=== PATIENT | male | born 1995 | race Caucasian/White ===

== ENCOUNTER 2018-07-17 20:18 | Inpatient (IN) | payer OTHER ==
[~2018-07-17] VITALS: Ht 175.3 cm; Wt 74.1 kg
--- NOTE | 2018-07-17 21:11 | CONS ---
Assessment/Plan Assessment/Plan Assessment/Plan (Daily) 22-year-old male with right ankle infection and active purulent drainage status post ORIF with ongoing hardware related pain. -N.p.o. after midnight -Antibiotics per primary service -Plan for OR tomorrow with hardware removal and irrigation and debridement -Nonweightbearing to the right lower extremity ----Lianne Childers MD Consultation Date/Type/Reason Admit Date/Time Date of Consultation: Jul 17, 2018 Type of Consult Right ankle infection Date/Time of Note DATE: 07/17/18 TIME: 21:11 Hx of Present Illness She is a 22-year-old male who presents with several weeks of right ankle drainage and surrounding erythema. He is several years status post right ankle ORIF in [facility]. He reports worsening pain over his right ankle and currently no fevers chills or nausea or vomiting. Past Medical History Medical History: no pertinent history Allergies: Coded Allergies: No Known Drug Allergies (Verified Allergy, Unknown, 07/17/18) Past Surgical History Right ankle ORIF several years ago while incarcerated Social History Alcohol Use: none Smoking Status: Never smoker Exam/Review of Systems Exam Vitals Vital Signs Date Temp Pulse Resp B/P (MAP) Pulse Ox O2 O2 Flow FiO2 Time Delivery Rate 07/17/18 98.4 80 18 137/73 99 20:25 (94) Constitutional: alert, oriented, well developed Musculoskeletal: other (Right ankle-extensive purulent drainage over the lateral aspect of the ankle with surrounding erythema and active drainage. He has intact ankle dorsiflexion and plantar flexion and limited eversion and inversion of pain. Strength was not assessed due to pain at this time. He has intact sensation to light touch the medial, lateral, dorsal, plantar, first dorsal traces distribution although it is slightly diminished over the lateral portion of his ankle and lateral dorsum of his foot. He has dorsalis pedis and posterior tibialis 2+ pulses.) LAKESHA CHILDERS MD Jul 17, 2018 21:11
[2018-07-17] MEDS ORDERED: VANCOMYCIN 1 GM (PMX) 250 ML IVPB ONE (21:30)
[2018-07-18] VITALS (16 sets, daily range): BP systolic 105–130; BP diastolic 50–74; PULSE 62–77; RESP 10–18; Ht 175.3 cm; Wt 74.1 kg
[2018-07-18] MEDS ORDERED: ACETAMINOPHEN 325 MG TAB PO PRN
[2018-07-18] MEDS ORDERED: NACL 0.9% 3 ML SYG IV SCH
[2018-07-18] MEDS ORDERED: morphine 2 MG INJ IV PRN
[2018-07-18] MEDS ORDERED: HYDROCODONE/APAP (5/325) TAB PO PRN
[2018-07-18] MEDS ORDERED: ONDANSETRON 4 MG TAB PO PRN
[2018-07-18] MEDS ORDERED: CEFAZOLIN 1 GM/50 ML (PMX) 50 ML IVPB SCH
--- NOTE | 2018-07-18 00:07 | HP ---
Date/Time of Note Date/Time of Note DATE: 07/17/18 TIME: 23:48 Assessment/Plan VTE Prophylaxis SCD applied (from Nsg): Yes Pharmacological prophylaxis: NA/contraindicated Pharm contraindication: low risk/ambulating Assessment/Plan Hospital Course This is a 22-year-old male being admitted to the [facility] floor for: #1 right ankle infection: Possibly secondary to infected hardware/osteo. xrays pending. Patient did receive vancomycin in the ED. We will give the patient cefazolin. Patient's chest x-ray is clear that EKG is nonischemic. Patient is a active male. He denies any chest pain or shortness of breath when walking up and down stairs. METS greater than 4. Patient is medically optimized to proceed with this intermediate surgery. The benefits likely outweigh the risks. #2 DVT GI prophylaxis: SCDs to the left lower extremity, no GI prophylaxis indicated further treatment strategy will be implemented as per the clinical course. Result Diagram: 07/17/18 2213 07/17/18 2213 Results 24hrs Laboratory Tests Test 07/17/18 22:13 White Blood Count 9.8 Red Blood Count 4.80 Hemoglobin 14.7 Hematocrit 44.7 Mean Corpuscular Volume 93.1 Mean Corpuscular Hemoglobin 30.6 Mean Corpuscular Hemoglobin Concent 32.9 Red Cell Distribution Width 12.1 Platelet Count 222 Mean Platelet Volume 12.2 H Immature Granulocytes % 0.300 Neutrophils % 55.8 Lymphocytes % 31.0 Monocytes % 8.1 Eosinophils % 3.9 Basophils % 0.9 Nucleated Red Blood Cells % 0.0 Immature Granulocytes # 0.030 Neutrophils # 5.5 Lymphocytes # 3.1 H Monocytes # 0.8 Eosinophils # 0.4 Basophils # 0.1 Nucleated Red Blood Cells # 0.0 Prothrombin Time 12.0 Prothrombin Time Ratio 0.9 INR International Normalized Ratio 0.88 Activated Partial Thromboplast Time 27.6 Thrombin Time 16.3 Urine Color YELLOW Urine Clarity CLEAR Urine pH 6.0 Urine Specific [place] 1.027 Urine Ketones NEGATIVE Urine Nitrite NEGATIVE Urine Bilirubin NEGATIVE Urine Urobilinogen 1+ H Urine Leukocyte Esterase NEGATIVE Urine Hemoglobin NEGATIVE Urine Glucose NEGATIVE Urine Total Protein NEGATIVE Sodium Level 139 Potassium Level 4.1 Chloride Level 106 Carbon Dioxide Level 24 Anion Gap 9 Blood Urea Nitrogen 23 H Creatinine 1.01 Est Glomerular Filtrat Rate mL/min > 60 Glucose Level 84 Calcium Level 9.6 Total Bilirubin 0.3 Direct Bilirubin 0.00 Indirect Bilirubin 0.3 Aspartate Amino Transf (AST/SGOT) 48 H Alanine Aminotransferase (ALT/SGPT) 48 Alkaline Phosphatase 69 C-Reactive Protein < 0.5 Total Protein 8.5 H Albumin 4.6 Globulin 3.90 H Albumin/Globulin Ratio 1.17 HPI/ROS Admit Date/Time Admit Date/Time Hx of Present Illness cc: right ankle pain, wound This is a 22M with a history of right ankle fx s/p ankle surgery who presents from his orthopedics office for preop eval for sx. Patient has been dealing with pain x 1 month to the right ankle. He has noticed discharge and blood and foul order for the last 1 month. He broke his ankle approximately 3 years ago in a soccer accident and had surgery then. Patient was going to have surgery via orthopedic surgery . Patient is a Patient is a independently functioning male. He is able to walk up and down steps without any chest pain or shortness of breath. He has not have any previous issues with anesthesia. Allergies: NKDA Medications: None ROS Const: Negative for fever, chills, weight gain or weight loss, fatigue, or diaphoresis Eyes : No pain discharge or redness or change in visual acuity ENT: No pain, sore throat, congestion, congestion, dysphagia or discharge Respiratory: No shortness of breath, cough, sputum, wheezing, or pleuritic pain Cardiovascular: No chest pain, palpitation, PND, or edema GI : no change in appetite, abdominal pain, nausea, vomiting, diarrhea, const ipation, or change in the color his stool Genitourinary: No dysuria, hematuria, flank pain , discharge or CVA tenderness Musculoskeletal: As per HPI Skin: As per HPI Neuro: No headache, dizziness, syncope, seizure, focal weakness Endocrine: No polyuria, polydipsia, temperature intolerance Psych: No hallucination, depression, anxiety or suicidal ideation PMH/Family/Social Past Medical History Right ankle fracture status post surgery 3 years ago Coded Allergies: No Known Drug Allergies (Verified Allergy, Unknown, 07/17/18) Past Surgical History Right ankle surgery 3 years ago Family History Significant Family History: no pertinent family hx Social History Alcohol Use: occasionally Smoking Status: Never smoker Drug Use: none Exam/Review of Systems Vital Signs Vitals Vital Signs Date Temp Pulse Resp B/P (MAP) Pulse Ox O2 O2 Flow FiO2 Time Delivery Rate 07/17/18 77 16 116/72 99 Room Air 22:41 (87) 07/17/18 98.4 20:25 Exam Exam General: Patient is well-developed well-nourished The patient is alert oriented -3 lying comfortably in bed. HEENT: Atraumatic, normocephalic. The pupils are equal, round and reactive. Extraocular motor are intact Neck: Supple with full range of motion. No rigidity or meningismus Chest: Nontender Lungs: Clear to auscultation bilaterally no crackles rales or wheezing Heart: Normal S1-S2, Regular rhythm and rate. No murmur, S3, or S4 Abdomen: Soft , nontender, nondistended , bowel sounds are present. No guarding no rebound tenderness , No masses or organomegaly. No costovertebral temporal angle mass Extremities: Normal to inspection, no edema no cyanosis Neurologic: Normal mental status, speech normal, cranial nerves II through XII are intact, motor and sensory are intact, no focal weakness Additional Comments PROCEDURE: XR Chest. CLINICAL INDICATION: Preoperative TECHNIQUE: Single frontal view of the chest was obtained COMPARISON: None FINDINGS: The heart and mediastinum are within normal limits. The lungs are clear. There is no pleural effusion or pneumothorax. RPTAT: AA IMPRESSION: No acute disease. .Huy Snider MD, MD Date Time Electronically viewed and signed by .Huy Snider MD, on 07/17/2018 22:53 .S/ CC: LAKESHA CHILDERS MD [phone] EKG: Normal sinus rhythm at approximately beats per minute, no ST or T wave abnormalities concerning for acute ischemia DANDY HUA Jul 18, 2018 00:06
--- NOTE | 2018-07-18 00:13 | ERD ---
ER Documentation Chief Complaint Chief Complaint was told to be admitted for right ankle surgery tomorrow HPI This is a very pleasant 22-year-old male who was told to come in to be admitted for right ankle surgery tomorrow. Apparently has a infection in his right ankle. Dr. house sent the patient in. ROS All systems reviewed and are negative except as per history of present illness. Allergies Allergies: Coded Allergies: No Known Drug Allergies (Verified Allergy, Unknown, 07/17/18) PMhx/Soc Medical and Surgical Hx: pt denies Medical Hx History of Surgery: Yes (LEFT SHOULDER, RIGHT ANKLE) Hx Alcohol Use: Yes Hx Substance Use: No Hx Tobacco Use: No Smoking Status: Never smoker Physical Exam Vitals Vital Signs Date Temp Pulse Resp B/P (MAP) Pulse Ox O2 O2 Flow FiO2 Time Delivery Rate 07/17/18 98.4 90 16 120/66 99 Room Air 23:57 (84) 07/17/18 77 16 116/72 99 Room Air 22:41 (87) 07/17/18 98.4 80 18 137/73 99 20:25 (94) Physical Exam Const: No acute distress Head: Atraumatic Eyes: Normal Conjunctiva ENT: Normal External Ears, Nose and Mouth. Neck: Full range of motion. No meningismus. Resp: Clear to auscultation bilaterally Cardio: Regular rate and rhythm, no murmurs Abd: Soft, non tender, non distended. Normal bowel sounds Skin: No petechiae or rashes Back: No midline or flank tenderness Ext: No cyanosis, or edema Neur: Awake and alert Psych: Normal Mood and Affect Result Diagram: 07/17/183 07/17/18 2213 Results 24 hrs Laboratory Tests Test 07/17/18 22:13 White Blood Count 9.8 10^3/ul Red Blood Count 4.80 10^6/ul Hemoglobin 14.7 g/dl Hematocrit 44.7 % Mean Corpuscular Volume 93.1 fl Mean Corpuscular Hemoglobin 30.6 pg Mean Corpuscular Hemoglobin Concent 32.9 g/dl Red Cell Distribution Width 12.1 % Platelet Count 222 10^3/UL Mean Platelet Volume 12.2 fl Immature Granulocytes % 0.300 % Neutrophils % 55.8 % Lymphocytes % 31.0 % Monocytes % 8.1 % Eosinophils % 3.9 % Basophils % 0.9 % Nucleated Red Blood Cells % 0.0 /100WBC Immature Granulocytes # 0.030 10^3/ul Neutrophils # 5.5 10^3/ul Lymphocytes # 3.1 10^3/ul Monocytes # 0.8 10^3/ul Eosinophils # 0.4 10^3/ul Basophils # 0.1 10^3/ul Nucleated Red Blood Cells # 0.0 10^3/ul Erythrocyte Sedimentation Rate 2 mm/Hr Prothrombin Time 12.0 Sec Prothrombin Time Ratio 0.9 INR International Normalized Ratio 0.88 Activated Partial Thromboplast Time 27.6 Sec Thrombin Time 16.3 SEC Urine Color YELLOW Urine Clarity CLEAR Urine pH 6.0 Urine Specific [place] 1.027 Urine Ketones NEGATIVE mg/dL Urine Nitrite NEGATIVE mg/dL Urine Bilirubin NEGATIVE mg/dL Urine Urobilinogen 1+ mg/dL Urine Leukocyte Esterase NEGATIVE [place]/ul Urine Hemoglobin NEGATIVE mg/dL Urine Glucose NEGATIVE mg/dL Urine Total Protein NEGATIVE mg/dl Sodium Level 139 mmol/L Potassium Level 4.1 mmol/L Chloride Level 106 mmol/L Carbon Dioxide Level 24 mmol/L Anion Gap 9 Blood Urea Nitrogen 23 mg/dl Creatinine 1.01 mg/dl Est Glomerular Filtrat Rate mL/min > 60 mL/min Glucose Level 84 mg/dl Calcium Level 9.6 mg/dl Total Bilirubin 0.3 mg/dl Direct Bilirubin 0.00 mg/dl Indirect Bilirubin 0.3 mg/dl Aspartate Amino Transf (AST/SGOT) 48 IU/L Alanine Aminotransferase (ALT/SGPT) 48 IU/L Alkaline Phosphatase 69 IU/L C-Reactive Protein < 0.5 mg/dl Total Protein 8.5 g/dl Albumin 4.6 g/dl Globulin 3.90 g/dl Albumin/Globulin Ratio 1.17 Current Medications Medications Dose Sig/Rashmi Start Time Status Last (Trade) Ordered Route PRN Stop Time Admin Dose Reason Admin Vancomycin 250 ml @ PRE-OP ONCE 07/17/18 DC 07/17/18 HCl 250 mls/hr IVPB 21:30 22:21 07/17/18 22:29 Sodium 1,000 ml @ [id number] IV 07/17/18 UNV Chloride 80 mls/hr 23:51 IV Flush 3 ml PER 07/18/18 UNV (NS 3 ml) PROTOCOL IV 00:00 Ondansetron 4 mg Q6H PRN 4/22/19 UNV HCl (Zofran PO 00:00 Tab) NAUSEA/VOMITI NG 650 mg Q6H PRN 07/18/18 UNV Acetaminophen PO .PAIN 1-3 00:00 (Tylenol OR TEMP Tab) 1 tab Q6H PRN 07/18/18 UNV Acetaminophen PO .MOD PAIN 00:00 / 4-6 Hydrocodone Bitart ([place] (5/325)) Morphine 2 mg Q4H PRN 07/18/18 UNV Sulfate IV .SEVERE 00:00 (morphine) PAIN 7-10 Docusate 100 mg Q12H PRN 07/18/18 UNV Sodium PO 00:00 (Colace) .CONSTIPATION Bisacodyl 5 mg DAILY PRN 07/18/18 UNV (Dulcolax) PO 00:00 .CONSTIPATION Cefazolin 50 ml @ ONCE IVPB 07/18/18 UNV Sodium 100 mls/hr 00:00 07/18/18 00:29 Procedures/MDM Medical decision m[age]-year-old male here to be cleared for possible surgery tomorrow. He has right ankle chronic issue that will likely need to be taken care of in the operating room. Admitted to hospitalist who is on-call. Departure Diagnosis: Primary Impression: Ankle pain Chronicity: unspecified Laterality: unspecified laterality Qualified Codes: M25.579 - Pain in unspecified ankle and joints of unspecified foot Condition: Serious JOSE CARLOS MIRANDA Jul 18, 2018 00:13
[2018-07-18] MEDS: SOD CHLORIDE 0.9% 1,000 ML IV SCH ×3 (01:02→23:21)
[2018-07-18] MEDS: CEFAZOLIN 1 GM/50 ML (PMX) 50 ML IVPB SCH ×2 (06:24→13:19)
[2018-07-18] MEDS ORDERED: NEOMYC/POLYMYX/BACIT 30 GM OINT ONE (06:51)
[2018-07-18] MEDS ORDERED: ROPIVACAINE 0.5 % 30 ML VIAL ONE ×2 (06:51→07:36)
[2018-07-18] MEDS ORDERED: POLYMYXIN B 500000 UNIT INJ ONE (06:51)
[2018-07-18] MEDS ORDERED: PROPOFOL 20 ML ONE ×2 (07:30→08:40)
[2018-07-18] MEDS ORDERED: ROCURONIUM 50 MG INJ ONE (07:30)
[2018-07-18] MEDS ORDERED: SUCCINYLCHOLINE CHLORIDE 100 MG/5 ML SYG IV ONE (07:30)
[2018-07-18] MEDS ORDERED: LIDOCAINE 2% (SDV) 5 ML INJ ONE (07:30)
[2018-07-18] MEDS ORDERED: FENTAnyl 50 MCG/ML VIAL ONE (07:31)
[2018-07-18] MEDS ORDERED: MIDAZOLAM 1 MG/ML 2 ML INJ ONE (07:31)
--- NOTE | 2018-07-18 08:34 | PN ---
Date/Time of Note Date/Time of Note DATE: 07/18/18 TIME: 08:30 Assessment/Plan Assessment/Plan Assessment/Plan Patient admitted from ER for 1-2 weeks of purulent drainage from the right ankle lateral wound, 2-3 years s/p R ankle ORIF at outside facility, now with concern for hardware infection, possible osteomyelitis and abscess with worry for spread - NPO - IVF - NWB to the RLE - to OR for urgent I&D and HWR --- Lianen Childers MD Subjective 24 Hr Interval Summary Right ankle purulent drainage. Denies fevers or chills Exam/Review of Systems Vital Signs Vitals Vital Signs Date Temp Pulse Resp B/P (MAP) Pulse Ox O2 O2 Flow FiO2 Time Delivery Rate 07/18/18 98.0 62 17 113/59 98 Room Air 06:48 (77) Intake and Output 07/17/18 07/17/18 07/18/18 1414:59 22:59 06:59 IntakeIntake Total 420 ml BalanceBalance 420 ml Exam Constitutional: alert, oriented, well developed Musculoskeletal: other (RLE/ Purulent drainage over the lateral ankle wound wit surrounding erythema, ta/gsc/ehl intact with 5/5 strength, silt to the m/l/d/ p/fdw, dp/pt 2+) Results Result Diagram: 07/18/18 0521 07/18/18 0521 LAKESHA CHILDERS MD Jul 18, 2018 08:34
[2018-07-18] MEDS ORDERED: FAMOTIDINE 20 MG INJ ONE (08:47)
[2018-07-18] MEDS ORDERED: DEXAMETHASONE 4 MG/ML 5 ML INJ ONE (08:47)
[2018-07-18] MEDS ORDERED: ONDANSETRON 4 MG INJ ONE (08:47)
[2018-07-18] MEDS ORDERED: VANCOMYCIN 1 GM INJ ONE (09:07)
[2018-07-18] MEDS ORDERED: VANCOMYCIN 1 GM (PMX) 250 ML ONE (09:07)
--- NOTE | 2018-07-18 09:34 | PREAC ---
Date/Time of Note Date/Time of Note DATE: 07/18/18 TIME: 09:33 Anesthesia Eval and Record Evaluation Time Pre-Procedure Interview DATE: 07/18/18 TIME: 09:33 Age 22 Sex male NPO: 8 hrs Preoperative diagnosis infected right ankle hardware Planned procedure right ankle hardware removal, irrigation and debridement of bone, tendon, muscle, skin, secondary closure of surgical wound or dehiscense, extensive or c omplicate Past Medical History Past Medical History: None Surgery & Anesthesia Issues No known issue Meds Anticoagulation: No Beta Porsche within 24 hr: No Reason Beta Porsche not given: Pt. not on B-Porsche Current Medications Sodium Chloride 1,000 ml @ 80 mls/hr [id number] IV Last administered on 07/18/18at 01:02; Admin Dose 80 MLS/HR; Start 07/17/18 at 23:51 IV Flush (NS 3 ml) 3 ml PER PROTOCOL IV ; Start 07/18/18 at 00:00 Ondansetron HCl (Zofran Tab) 4 mg Q6H PRN PO NAUSEA/VOMITING; Start 07/18/18 at 00:00 Acetaminophen (Tylenol Tab) 650 mg Q6H PRN PO .PAIN 1-3 OR TEMP; Start 07/18/18 at 00:00 Acetaminophen/ Hydrocodone Bitart ([place] (5/325)) 1 tab Q6H PRN PO .MOD PAIN 4- 6; Start 07/18/18 at 00:00 Morphine Sulfate (morphine) 2 mg Q4H PRN IV .SEVERE PAIN 7-10; Start 07/18/18 at 00:00 Docusate Sodium (Colace) 100 mg Q12H PRN PO .CONSTIPATION; Start 07/18/18 at 00:00 Bisacodyl (Dulcolax) 5 mg DAILY PRN PO .CONSTIPATION; Start 07/18/18 at 00:00 Cefazolin Sodium 50 ml @ 100 mls/hr Q8 IVPB Last administered on 07/18/18at 06:24; Admin Dose 100 MLS/HR; Start 07/18/18 at 06:00 Meds reviewed: Yes Allergies Coded Allergies: No Known Drug Allergies (Verified Allergy, Unknown, 07/17/18) Allergies Reviewed: Yes Labs/Studies Labs Reviewed: Reviewed by anesthesiologist Result Diagram: 07/18/1852007/18/18520 Laboratory Tests 07/18/18 05:21 test: N/A Pre-procedure Exam Last vitals Vital Signs Date Temp Pulse Resp B/P (MAP) Pulse Ox O2 O2 Flow FiO2 Time Delivery Rate 07/18/18 98.0 62 17 113/59 98 Room Air 06:48 (77) Airway: Adequate mouth opening, Adequate thyromental dist Mallampati: Mallampati II Teeth: Normal Lung: Normal Heart: Normal ASA Physical Status ASA physical status: 1 Emergency: None Planned Anesthetic General/MAC: ETT Nerve block: Sciatic (right) Planned Pain Management Single shot nerve block, Parenteral pain med Pre-operative Attestations Prior to commencing anesthesia and surgery, the patient was re-evaluated, there was verification of: *The patient's identity *The results of appropriate recent lab work and preoperative vital signs *The above evaluation not changing prior to induction *Anesthetic plan, risk benefits, alternative and complications discussed with patient/family; questions answered; patient/family understands, accepts and wishes to proceed. ELEANOR PRASAD MD Jul 18, 2018 09:34
[2018-07-18] MEDS ORDERED: HYDROmorphONE 2 MG/ML SYG ONE (10:18)
[2018-07-18] MEDS ORDERED: NEOSTIGMINE 3 MG/3 ML SYRINGE ONE (10:57)
[2018-07-18] MEDS ORDERED: GLYCOPYRROLATE 0.4 MG INJ ONE (10:57)
[2018-07-18] MEDS ORDERED: BACITRACIN 50000 UNITS INJ IRR ONE (11:03)
[2018-07-18] MEDS ORDERED: LABETALOL HCL 20MG INJ ONE (11:05)
--- NOTE | 2018-07-18 11:37 | OPR ---
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 Patient has ongoing pain over both his medial and lateral ankle hardware and is indicated for surgical removal as well as irrigation and debridement. Risk Note: Patient was explained the risks and benefits of surgery and the patient's stebbins language including not limited to infection, bleeding, injury to blood vessels, nerves, ligaments or tendons. Risks of anesthesia, deep vein thrombosis and need for reduce future surgery. Patient acknowledged these risk by signing the surgical consent form. Procedure Description Patient was met in the preoperative holding area and the correct operative extremity was marked and confirmed with the patient and consent. Patient was brought to the operative theater placed supine on the table given preoperative antibiotics and preoperative regional block anesthesia. Patient was prepped and draped in the normal sterile fashion. A timeout was taken and all parties in the room agreed as a correct patient extremity and procedure. Multiple cultures were taken from the lateral ankle purulent drainage site. There were sent for pathology. This was made over the previous incision site hardware was identified and removed. The bone, muscle and surrounding soft tissue were debrided thoroughly with a curette and then irrigated with 9 L of normal saline mixed with polymyxin bacitracin. The wound was irrigated extensively and curetted extensively along the bone and soft tissue. The wound was then packed with vancomycin powder and then closed in layers with a 2-0 Vicryl followed by a 3-0 Monocryl and then a 3-0 nylon in a vertical mattress fashion. Fluoroscopy confirmed that all lateral side hardware had been removed. Attention was then turned to the medial ankle where there was pain over the anterior medial malleolus screw. The anterior screw was identified however the threads were already lost at the site of the screw head and thus having to use a broken screw removal set to remove the hardware at this site. Once the screw was removed the site was then packed with DBM to allow for future healing. The wound was irrigated thoroughly and closed in layers with a 2-0 Vicryl followed by 3-0 nylon in a vertical mattress fashion. X-ray confirmed that the posterior screw was left in place due to the lack of prominence and risk of removing the screw which could cause further bony defect. The wounds were dressed with Xeroform despite antibiotic ointment and placed in a well-padded short leg splint with diabetes and 5 Webrils in a neutral position. At the end of the case all sponge and needle counts were correct and patient brought to the PACU in stable condition. In the PACU the toes were warm and well-perfused. Patient will remain nonweightbearing for the next several weeks and will be started on p.o. or IV antibiotics per the primary team. NEWTON CHILDERS MD Jul 18, 2018 11:37
--- NOTE | 2018-07-18 11:38 | PAC ---
Date/Time of Note Date/Time of Note DATE: 07/18/18 TIME: 11:38 Post-Anesthesia Notes Post-Anesthesia Note Last documented vital signs Vital Signs Date Temp Pulse Resp B/P (MAP) Pulse Ox O2 O2 Flow FiO2 Time Delivery Rate 07/18/18 98.0 62 17 113/59 98 Room Air 06:48 (77) Activity: WNL Respiratory function: WNL Cardiovascular function: WNL Mental status: Baseline Pain reasonably controlled: Yes Hydration appropriate: Yes Nausea/Vomiting absent: Yes Comments BP: 120/65 HR: 77 RR:15 T: 99.8 SaO2: 97% ELEANOR PARSAD MD Jul 18, 2018 11:38
[2018-07-18] MEDS ORDERED: DIPHENHYDRAMINE 25 MG CAP PO PRN (12:00)
--- NOTE | 2018-07-18 13:06 | PN ---
Date/Time of Note Date/Time of Note DATE: 07/18/18 TIME: 13:00 Assessment/Plan VTE Prophylaxis Risk score (from [facility] [place] risk: 2 SCD applied (from [facility] [place] Yes Pharmacological prophylaxis: LMWH Lines/Catheters IV [facility]ter Type (from [facility]): Peripheral IV Assessment/Plan Assessment/Plan 1. Right ankle infection, s/p Right ankle hardware removal, and I&D on 07/18/2018, on antibiotics, follow up with PT and ortho 2. DVT prophylaxis: lovenox Result Diagram: 07/18/18 0521 07/18/18 0521 Results 24hrs Laboratory Tests Test 07/17/18 22:13 07/18/18 05:21 White Blood Count 9.8 9.0 Red Blood Count 4.80 4.52 L Hemoglobin 14.7 14.0 Hematocrit 44.7 42.4 Mean Corpuscular Volume 93.1 93.8 Mean Corpuscular Hemoglobin 30.6 31.0 Mean Corpuscular Hemoglobin Concent 32.9 33.0 Red Cell Distribution Width 12.1 12.1 Platelet Count 222 185 Mean Platelet Volume 12.2 H 12.3 H Immature Granulocytes % 0.300 0.600 H Neutrophils % 55.8 60.0 Lymphocytes % 31.0 27.1 Monocytes % 8.1 7.8 Eosinophils % 3.9 3.9 Basophils % 0.9 0.6 Nucleated Red Blood Cells % 0.0 0.0 Immature Granulocytes # 0.030 0.050 H Neutrophils # 5.5 5.4 Lymphocytes # 3.1 H 2.4 Monocytes # 0.8 0.7 Eosinophils # 0.4 0.4 Basophils # 0.1 0.1 Nucleated Red Blood Cells # 0.0 0.0 Erythrocyte Sedimentation Rate 2 Prothrombin Time 12.0 Prothrombin Time Ratio 0.9 INR International Normalized Ratio 0.88 Activated Partial Thromboplast Time 27.6 Thrombin Time 16.3 Urine Color YELLOW Urine Clarity CLEAR Urine pH 6.0 Urine Specific [place] 1.027 Urine Ketones NEGATIVE Urine Nitrite NEGATIVE Urine Bilirubin NEGATIVE Urine Urobilinogen 1+ H Urine Leukocyte Esterase NEGATIVE Urine Hemoglobin NEGATIVE Urine Glucose NEGATIVE Urine Total Protein NEGATIVE Sodium Level 139 140 Potassium Level 4.1 4.2 Chloride Level 106 105 Carbon Dioxide Level 24 25 Anion Gap 9 10 Blood Urea Nitrogen 23 H 19 Creatinine 1.01 0.96 Est Glomerular Filtrat Rate mL/min > 60 > 60 Glucose Level 84 94 Calcium Level 9.6 8.8 Total Bilirubin 0.3 0.6 Direct Bilirubin 0.00 0.00 Indirect Bilirubin 0.3 0.6 Aspartate Amino Transf (AST/SGOT) 48 H 38 Alanine Aminotransferase (ALT/SGPT) 48 48 Alkaline Phosphatase 69 64 C-Reactive Protein < 0.5 Total Protein 8.5 H 7.0 # Albumin 4.6 4.1 Globulin 3.90 H 2.90 Albumin/Globulin Ratio 1.17 1.41 Hemoglobin A1c 5.1 Magnesium Level 2.2 Triglycerides Level 75 Cholesterol Level 154 LDL Cholesterol, Calculated 100 HDL Cholesterol 39 Cholesterol/HDL Ratio 3.9 Thyroid Stimulating Hormone (TSH) 1.740 Subjective 24 Hr Interval Summary Free Text/Dictation just back from surgery, no distress Exam/Review of Systems Exam Vitals Vital Signs Date Temp Pulse Resp B/P (MAP) Pulse Ox O2 O2 Flow FiO2 Time Delivery Rate 07/18/18 99.8 12:10 07/18/18 72 10 105/56 93 Room Air 12:04 (72) 07/18/18 8.0 11:14 Intake and Output 07/17/18 07/17/18 07/18/18 1515:00 23:00 07:00 IntakeIntake Total 420 ml BalanceBalance 420 ml Constitutional: alert, oriented, well developed Psych: no complaints, nl mood/affect Head: normocephalic, atraumatic Eyes: nl conjunctiva, EOMI, nl lids, PERRL ENMT: nl external ears & nose, nl lips & teeth, nl nasal mucosa & septum Neck: supple, non-tender Respiratory: clear to auscultation, normal air movement; No congested cough, No crackles/rales, No diminished breath sounds, No intercostal retraction, No labored breathing, No respirations, No tactile fremitus, No wheezing, No other Cardiovascular: regular rate and rhythm, nl pulses; No bruits, No diastolic murmur, No edema, No gallop, No irregular rhythm, No jugular venous distention (JVD), No murmurs/extra sounds, No rub, No systolic murmur, No S3, No S4, No other Gastrointestinal: soft, nl liver, spleen, non-tender Extremities: other (right ankle post surgery) 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, nl mental status, nl speech, nl strength Results Results 24hrs Laboratory Tests Test 07/17/18 22:13 07/18/18 05:21 White Blood Count 9.8 9.0 Red Blood Count 4.80 4.52 L Hemoglobin 14.7 14.0 Hematocrit 44.7 42.4 Mean Corpuscular Volume 93.1 93.8 Mean Corpuscular Hemoglobin 30.6 31.0 Mean Corpuscular Hemoglobin Concent 32.9 33.0 Red Cell Distribution Width 12.1 12.1 Platelet Count 222 185 Mean Platelet Volume 12.2 H 12.3 H Immature Granulocytes % 0.300 0.600 H Neutrophils % 55.8 60.0 Lymphocytes % 31.0 27.1 Monocytes % 8.1 7.8 Eosinophils % 3.9 3.9 Basophils % 0.9 0.6 Nucleated Red Blood Cells % 0.0 0.0 Immature Granulocytes # 0.030 0.050 H Neutrophils # 5.5 5.4 Lymphocytes # 3.1 H 2.4 Monocytes # 0.8 0.7 Eosinophils # 0.4 0.4 Basophils # 0.1 0.1 Nucleated Red Blood Cells # 0.0 0.0 Erythrocyte Sedimentation Rate 2 Prothrombin Time 12.0 Prothrombin Time Ratio 0.9 INR International Normalized Ratio 0.88 Activated Partial Thromboplast Time 27.6 Thrombin Time 16.3 Urine Color YELLOW Urine Clarity CLEAR Urine pH 6.0 Urine Specific [place] 1.027 Urine Ketones NEGATIVE Urine Nitrite NEGATIVE Urine Bilirubin NEGATIVE Urine Urobilinogen 1+ H Urine Leukocyte Esterase NEGATIVE Urine Hemoglobin NEGATIVE Urine Glucose NEGATIVE Urine Total Protein NEGATIVE Sodium Level 139 140 Potassium Level 4.1 4.2 Chloride Level 106 105 Carbon Dioxide Level 24 25 Anion Gap 9 10 Blood Urea Nitrogen 23 H 19 Creatinine 1.01 0.96 Est Glomerular Filtrat Rate mL/min > 60 > 60 Glucose Level 84 94 Calcium Level 9.6 8.8 Total Bilirubin 0.3 0.6 Direct Bilirubin 0.00 0.00 Indirect Bilirubin 0.3 0.6 Aspartate Amino Transf (AST/SGOT) 48 H 38 Alanine Aminotransferase (ALT/SGPT) 48 48 Alkaline Phosphatase 69 64 C-Reactive Protein < 0.5 Total Protein 8.5 H 7.0 # Albumin 4.6 4.1 Globulin 3.90 H 2.90 Albumin/Globulin Ratio 1.17 1.41 Hemoglobin A1c 5.1 Magnesium Level 2.2 Triglycerides Level 75 Cholesterol Level 154 LDL Cholesterol, Calculated 100 HDL Cholesterol 39 Cholesterol/HDL Ratio 3.9 Thyroid Stimulating Hormone (TSH) 1.740 Medications Medication Current Medications Sodium Chloride 1,000 ml @ 80 mls/hr [id number] IV Last administered on 07/18/18at 01:02; Admin Dose 80 MLS/HR; Start 07/17/18 at 23:51 IV Flush (NS 3 ml) 3 ml PER PROTOCOL IV ; Start 07/18/18 at 00:00 Acetaminophen (Tylenol Tab) 650 mg Q6H PRN PO .PAIN 1-3 OR TEMP; Start 07/18/18 at 00:00 Docusate Sodium (Colace) 100 mg Q12H PRN PO .CONSTIPATION; Start 07/18/18 at 00:00 Bisacodyl (Dulcolax) 5 mg DAILY PRN PO .CONSTIPATION; Start 07/18/18 at 00:00 Cefazolin Sodium 50 ml @ 100 mls/hr Q8 IVPB Last administered on 07/18/18at 06:24; Admin Dose 100 MLS/HR; Start 07/18/18 at 06:00 Vancomycin HCl 100 ml @ 100 mls/hr Q12H IVPB ; Start 07/18/18 at 12:00; Stop 07/19/18 at 00:59; Status UNV Oxycodone/ Acetaminophen (Percocet (5/ 325)) 2 tab Q4H PRN PO PAIN; Start 07/18/18 at 12:00 Morphine Sulfate (morphine) 5 mg Q4H PRN IV PAIN LEVEL 7-10; Start 07/18/18 at 12:00 Ondansetron HCl (Zofran Inj) 4 mg Q4H PRN IV NAUSEA AND/OR VOMITING; Start at 12:00 Diphenhydramine HCl (Benadryl) 25 mg Q4H PRN PO ITCHING; Start 07/18/18 at 12:00 FADUMO DOZIER MD Jul 18, 2018 13:06
[2018-07-18] MEDS: morphine 10 MG INJ IV PRN ×3 (13:25→21:57)
[2018-07-18] MEDS: OXYCODONE/ACETAMINOPHEN (5/325) TAB PO PRN (15:27)
--- NOTE | 2018-07-18 15:47 | RADRPT ---
Echocardiogram Report Patient Name: MIGUE BLASPatient ID: [id number] : 1995 (23y )Study Date: 07/18/2018 2:55:35 PM Gender: MAccession #: [id number] Tech: Marty Otero [facility] Location: [facility] Ref.Physician: FADUMO DOZIER Height(Cm): BSA: Weight(Kg): Quality: AdequateAccount #: Procedures: Echocardiographic Report: Transthoracic echocardiogram with complete 2D, M-Mode, and doppler examination. Indications: Bacteremia, r/o endocarditis. Measurements: 2D/M Mode Doppler Measurement Value Normal Range Measurement Value Normal Range LVIDd 2D 4.4 [ 4.2 - 5.8 ] cm AV Peak Dev 1.3 [ 100.0 - 170.0 ] cm/sec LVIDs 2D 2.7 [ 2.5 - 4.0 ] cm AV Peak PG 7.0 [ 2.0 - 9.0 ] mmHg LVPWd 2D 1.0 [ 0.6 - 1.0 ] cm LVOT Peak Dev 1.4 [ 70.0 - 110.0 ] cm/sec IVSd 2D 1.0 [ 0.6 - 1.0 ] cm LVOT Peak PG 8.0 [ 2.0 - 6.0 ] mmHg AoR Diam 2D 2.5 [ 2.6 - 3.4 ] cm MV E Peak Dev 0.9 [ 60.0 - 130.0 ] cm/sec EDV 2D 85.8 [ 62.0 - 150.0 ] ml MV A Peak Dev 0.6 [ 100.0 - 120.0 ] cm/sec ESV 2D 26.8 [ 21.0 - 61.0 ] ml MV E/A 1.6 [ 0.8 - 1.5 ] ratio EF 2D 68.8 [ 52.0 - 72.0 ] percent MV Decel Time 317 [ 104 - 258 ] msec LA Dimen 2D 2.8 [ 3.0 - 4.0 ] cm Lat E` Dev 0.2 [ 10.0 - 15.0 ] cm/sec Lateral E/E` 4.6 [ 1.0 - 2.0 ] ratio MV E/A 1.6 [ 0.8 - 1.5 ] ratio RA Pressure 10.0 mmHg Findings: Left Ventricle: Normal left ventricular systolic function. Normal left ventricular cavity size. Normal left ventricular wall thickness. Ejection fraction is visually estimated at 65 %. Tissue Doppler/Mitral Doppler indices are consistent with pseudonormalization with mildly elevated left atrial pressure (Stage II diastolic dysfunction). Right Ventricle: Normal right ventricular size. Normal right ventricular systolic function. Left Atrium: The left atrium is normal in size. Right Atrium: The right atrium is normal in size. Mitral Valve: Normal appearance and function of the mitral valve with trace physiologic regurgitation. No evidence of endocarditis. Aortic Valve: No hemodynamically significant aortic stenosis by doppler. Aortic cusps appear mildly calcified. Right coronary cusp appears mildly calcified. Trileaflet aortic valve. Tricuspid Valve: Normal appearance of the tricuspid valve. Unable to obtain RVSP due to minimal presence of tricuspid regurgitation. No evidence of endocarditis. Pericardium: Normal pericardium with no significant pericardial effusion. Aorta: Normal aortic root. IVC: Normal size and normal respiratory collapse consistent with normal right atrial pressure. Conclusions: Normal left ventricular systolic function. Normal left ventricular cavity size. Normal left ventricular wall thickness. Ejection fraction is visually estimated at 65 %. Tissue Doppler/Mitral Doppler indices are consistent with pseudonormalization with mildly elevated left atrial pressure (Stage II diastolic dysfunction). Normal appearance and function of the mitral valve with trace physiologic regurgitation. No evidence of endocarditis. No hemodynamically significant aortic stenosis by doppler. Aortic cusps appear mildly calcified. Right coronary cusp appears mildly calcified. Trileaflet aortic valve. Normal appearance of the tricuspid valve. Unable to obtain RVSP due to minimal presence of tricuspid regurgitation. No evidence of endocarditis. Electronically Signed By: Bryan Turner 2018-07-18 15:46:38 PDT
[2018-07-18] MEDS: ONDANSETRON 4 MG INJ IV PRN (18:02)
[2018-07-18] MEDS: VANCOMYCIN 500 MG (PMX) 100 ML IVPB SCH (20:46)
[2018-07-19 02:00] VITALS: BP 103/52; PULSE 74; RESP 18
[2018-07-19 08:00] VITALS: BP 98/51; PULSE 61; RESP 18
[2018-07-19] MEDS: morphine 10 MG INJ IV PRN ×4 (08:07→21:59)
[2018-07-19] MEDS: OXYCODONE/ACETAMINOPHEN (5/325) TAB PO PRN ×3 (09:34→19:54)
[2018-07-19] MEDS: VANCOMYCIN 500 MG (PMX) 100 ML IVPB SCH (09:34)
[2018-07-19] MEDS: ENOXAPARIN 40 MG/0.4 ML SYG SC SCH (09:40)
--- NOTE | 2018-07-19 10:54 | PN ---
Date/Time of Note Date/Time of Note DATE: 07/19/18 TIME: 10:49 Assessment/Plan VTE Prophylaxis Risk score (from [facility] [place])>0 risk: 5 SCD applied (from [facility]): Yes Pharmacological prophylaxis: LMWH Lines/Catheters IV Catheter Type (from [facility]): Peripheral IV Assessment/Plan Assessment/Plan 1. Right ankle infection, s/p Right ankle hardware removal, and I&D on 07/18/2018, on vancomycin, ID for outpatient antibiotics 2. DVT prophylaxis: lovenox Result Diagram: 07/18/18 [id number] Subjective 24 Hr Interval Summary Free Text/Dictation afebrile Exam/Review of Systems Exam Vitals Vital Signs Date Temp Pulse Resp B/P (MAP) Pulse Ox O2 O2 Flow FiO2 Time Delivery Rate 07/19/18 97.7 61 18 98/51 (67) 99 Room Air 08:00 07/18/18 8.0 11:14 Intake and Output 07/18/18 07/18/18 07/19/18 1515:00 23:00 07:00 IntakeIntake Total 1990 ml 620 ml 710 ml OutputOutput Total 20 ml 300 ml 600 ml BalanceBalance 1970 ml 320 ml 110 ml Constitutional: alert, oriented, well developed Psych: no complaints, nl mood/affect Head: normocephalic, atraumatic Eyes: nl conjunctiva, EOMI, nl lids ENMT: nl external ears & nose, nl lips & teeth, nl nasal mucosa & septum Neck: supple, non-tender Respiratory: clear to auscultation, normal air movement; No congested cough, No crackles/rales, No diminished breath sounds, No inte rcostal retraction, No labored breathing, No respirations, No tactile fremitus, No wheezing, No other Cardiovascular: regular rate and rhythm, nl pulses; No bruits, No diastolic murmur, No edema, No gallop, No irregular rhythm, No jugular venous distention (JVD), No murmurs/extra sounds, No rub, No systolic murmur, No S3, No S4, No other Gastrointestinal: soft, nl liver, spleen, non-tender Extremities: other (right ankle with cast) 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, nl mental status, nl speech, nl strength Medications Medication Current Medications Sodium Chloride 1,000 ml @ 80 mls/hr [id number] IV Last administered on 07/18/18at 23:21; Admin Dose 80 MLS/HR; Start 07/17/18 at 23:51 IV Flush (NS 3 ml) 3 ml PER PROTOCOL IV ; Start 07/18/18 at 00:00 Acetaminophen (Tylenol Tab) 650 mg Q6H PRN PO .PAIN 1-3 OR TEMP; Start 07/18/18 at 00:00 Docusate Sodium (Colace) 100 mg Q12H PRN PO .CONSTIPATION; Start 07/18/18 at 00:00 Bisacodyl (Dulcolax) 5 mg DAILY PRN PO .CONSTIPATION; Start 07/18/18 at 00:00 Oxycodone/ Acetaminophen (Percocet (5/ 325)) 2 tab Q4H PRN PO PAIN Last administered on 07/19/18at 09:34; Admin Dose 2 TAB; Start 07/18/18 at 12:00 Morphine Sulfate (morphine) 5 mg Q4H PRN IV PAIN LEVEL 7-10 Last administered on 07/19/18at 08:07; Admin Dose 5 MG; Start 07/18/18 at 12:00 Ondansetron HCl (Zofran Inj) 4 mg Q4H PRN IV NAUSEA AND/OR VOMITING Last administered on 07/18/18at 18:02; Admin Dose 4 MG; Start 07/18/18 at 12:00 Diphenhydramine HCl (Benadryl) 25 mg Q4H PRN PO ITCHING; Start 07/18/18 at 12:00 Enoxaparin Sodium (Lovenox) 40 mg DAILY SC Last administered on 07/19/18at 09:40; Admin Dose 40 MG; Start 07/19/18 at 09:00 FADUMO DOZIER MD Jul 19, 2018 10:54
[2018-07-19] MEDS ORDERED: VANCOMYCIN IV PER PHARMACY XX SCH (12:00)
--- NOTE | 2018-07-19 12:46 | PN ---
Date/Time of Note Date/Time of Note DATE: 07/19/18 TIME: 12:46 Assessment/Plan Lines/Catheters IV Catheter Type (from Nrsg): Peripheral IV Assessment/Plan Assessment/Plan POD#1 s/p R Ankle HWR, I&D - NWB to the RLE - IV Vanco - PT has cleared patient - DC patient home on PO Levaquin today - Patient to follow up with me in 1 week at [facility] [place] ---- Lianne CHILDERS MD Subjective 24 Hr Interval Summary Doing well. Pain controlled. No f/c/n/v Exam/Review of Systems Vital Signs Vitals Vital Signs Date Temp Pulse Resp B/P (MAP) Pulse Ox O2 O2 Flow FiO2 Time Delivery Rate 07/19/18 97.7 61 18 98/51 (67) 99 Room Air 08:00 07/18/18 8.0 11:14 Intake and Output 07/18/18 07/18/18 07/19/18 1515:00 23:00 07:00 IntakeIntake Total 1990 ml 620 ml 710 ml OutputOutput Total 20 ml 300 ml 600 ml BalanceBalance 1970 ml 320 ml 110 ml Exam Constitutional: alert, oriented, well developed Musculoskeletal: other (RLE/ Splint intact, toes wiggle, cr brisk, silt to the exposed toes) Results Result Diagram: 07/18/18 0521 07/18/18 0521 LAKESHA CHILDERS MD Jul 19, 2018 12:46
[2018-07-19] MEDS: SOD CHLORIDE 0.9% 1,000 ML IV SCH ×2 (13:21→14:56)
[2018-07-19] MEDS ORDERED: LEVO500T48 PO (13:29)
--- NOTE | 2018-07-19 13:34 | DS ---
Date/Time of Note Date/Time of Note DATE: 07/19/18 TIME: 13:31 Discharge Summary Admission/Discharge Info Admit Date/Time Jul 17, 2018 at 23:39 Discharge Date/Time Discharge Diagnosis 1. Right ankle infection, s/p Right ankle hardware removal, and I&D on 019, on levaquin, follow up with ortho Procedures Right ankle hardware removal Right ankle irrigation and debridement of bone, muscle, soft tissue and skin Hospital Course This is a 22M with a history of right ankle fx s/p ankle surgery who presents from his orthopedics office for preop eval for sx. Patient has been dealing with pain x 1 month to the right ankle. He has noticed discharge and blood and foul order for the last 1 month. He broke his ankle approximately 3 years ago in a soccer accident and had surgery then. Patient got right ankle hardware removal and right ankle irrigation and debridement of bone, muscle, soft tissue and skin on 07/18/2018 without complication. Patient will be discharged with levaquin for two weeks and follow up with ortho in one week. NWB on right right lower extremity. Home Meds Active Scripts Levofloxacin* (Levaquin*) 500 Mg Tablet, 500 MG PO DAILY for 14 Days, TAB Prov:FADUMO DOZIER MD 07/19/18 Follow-up Plan PCP and ortho in one week Primary Care Provider Not On Staff Doctor FADUMO DOZIER MD Jul 19, 2018 13:34
--- NOTE | 2018-07-19 13:48 | CONS ---
DATE OF ADMISSION: 07/17/2018 DATE OF CONSULTATION: 07/19/2018 TYPE OF CONSULTATION: Infectious disease. REASON FOR CONSULTATION: Antibiotic management. HISTORY OF PRESENT ILLNESS: Roger Pate is a 23-year-old male admitted on 07/17/2018. He is a 23-year-old male to be admitted for right ankle surgery. Dr. Newton Archer is his physician. His other problems include left shoulder and right ankle surgeries. On admission, his white count was 9 .8, H and H of 14.7 and 44.7, platelet count 222,000. BUN and creatinine 23/1.01. HOSPITAL COURSE: On 07/18 he had a right ankle hardware removal right ankle irrigation and debrideme nt of bone, muscle, soft tissue and skin. Multiple cultures and ankle hardware was sent for patholog y. The patient had a history of several weeks of purulent drainage from his lateral right ankle with pain over the medial and lateral ankle hardware. Wound cultures are pending. Ankle x-ray showed in traoperative imaging of the right ankle with removal of the lateral plate and screws in the distal fi bula and removal of one of the cannulated screws from the medial malleolus on 07/19. Patient was sta ble, was seen by Dr. Gamble, right ankle infection status post right ankle hardware removal and I and D . His white count was 9000. The patient was started on vancomycin, initially on cefazolin. Current ly, patient is on no antibiotics. Cultures are pending. PAST MEDICAL HISTORY: Operations as outlined. FAMILY HISTORY: Noncontributory. SOCIAL HISTORY: He does not smoke, drink or abuse drugs. ALLERGIES: None to penicillin, sulfa or foods. MEDICATIONS: Per chart. REVIEW OF SYSTEMS: As per HPI. PHYSICAL EXAMINATION: GENERAL: The patient is a well-developed, well-nourished male who had a right ankle fracture status post surgery 3 years ago. Currently in no acute distress. VITAL SIGNS: Stable. He is afebrile. SKIN: Without generalized rash. HEENT: Within normal limits. NECK: Supple. LYMPH NODES: None palpable. CHEST: Decreased breath sounds at the bases. HEART: Without murmur or gallop. ABDOMEN: Soft, nontender, without organosplenomegaly or masses. EXTREMITIES: Without cyanosis, clubbing, or edema. RECTAL/GENITAL: Exam is deferred. EXTREMITIES: Without cyanosis, clubbing, or edema. The right ankle is bandaged. NEUROLOGIC: No focal neurological abnormality. IMPRESSION AND PLAN: Patient currently was admitted for removal of hardware. His wound cultures so far are negative and he is off antibiotic therapy. I think we will continue him on vancomycin until the cultures are finalized. He may need a PICC line. I will dictate my findings to Dr. Archer and asif dominguez hospitalists. Dictated By: PRESLEY NAIK MD, JD/NTS Conf#: [id number] DID#: [id number] CC: DANDY HUA MD;*End*
[2018-07-19 14:00] VITALS: BP 112/59; PULSE 74; RESP 17
--- NOTE | 2018-07-19 16:50 | RADRPT ---
Vent Rate: 54 bpm RR Interval: 1120 msec MI Interval: 188 msec QRS Duration: 90 msec QT Interval: 407 msec QTC Interval: 385 msec P-R-T [place]: 33 - 65 - 60 degrees Sinus arrhythmia...V-rate 46- 63, variation>10% ST elev, probable normal early repol pattern...ST elevation, age<55 Electronically Signed By: Barry Katz
[2018-07-19] MEDS: VANCOMYCIN 1 GM 250 ML IVPB SCH (17:39)
[2018-07-19 20:15] VITALS: BP 112/58; PULSE 75; RESP 18
[2018-07-20] MEDS: OXYCODONE/ACETAMINOPHEN (5/325) TAB PO PRN ×4 (00:18→22:16)
[2018-07-20 02:15] VITALS: BP 110/55; PULSE 61; RESP 18
[2018-07-20] MEDS: morphine 10 MG INJ IV PRN ×4 (04:14→20:45)
[2018-07-20] MEDS: SOD CHLORIDE 0.9% 1,000 ML IV SCH (05:32)
[2018-07-20] MEDS: VANCOMYCIN 1 GM 250 ML IVPB SCH ×2 (05:33→17:51)
[2018-07-20 07:55] VITALS: BP 97/52; PULSE 56; RESP 18
[2018-07-20] MEDS: ENOXAPARIN 40 MG/0.4 ML SYG SC SCH (08:04)
[2018-07-20] MEDS ORDERED: VANC1PLA9 IV ×2 (11:50→12:12)
--- NOTE | 2018-07-20 11:53 | DS ---
Date/Time of Note Date/Time of Note DATE: 07/20/18 TIME: 11:52 Discharge Summary Admission/Discharge Info Admit Date/Time Jul 17, 2018 at 23:39 Discharge Date/Time Discharge Diagnosis 1. Right ankle infection with MRSA, s/p Right ankle hardware removal, and I&D on 07/18/2018, on iv vancomycin, follow up with ortho Patient Condition: Stable Hospital Course This is a 22M with a history of right ankle fx s/p ankle surgery who presents from his orthopedics office for preop eval for sx. Patient has been dealing with pain x 1 month to the right ankle. He has noticed discharge and blood and foul order for the last 1 month. He broke his ankle approximately 3 years ago in a soccer accident and had surgery then. Patient got right ankle hardware removal and right ankle irrigation and debridement of bone, muscle, soft tissue and skin on 07/18/2018 without complication. Wound caulture positive with MRSA, Patient will be discharged with iv vancomycin and follow up with ortho in one week. NWB on right right lower extremity. Home Meds Active Scripts Vancomycin/0.9 % Sod Chloride (Vanco 1 Gram/250 ml-0.9% NaCl) 1 Gm/250 Ml Plast..bag, 1 GM IV Q12H for 42 Days Prov:FADUMO DOZIER MD 07/20/18 Follow-up Plan PCP and ortho in one week Primary Care Provider Not On Staff Doctor Pending Labs Laboratory Tests Test 07/20/18 05:59 Blood Urea Nitrogen 13 mg/dl (7-20) Creatinine 0.83 mg/dl (0.61-1.24) FADUMO DOZIER MD Jul 20, 2018 11:53
[2018-07-20] MEDS ORDERED: LIDOCAINE 1% (MPF) 5 ML VIAL SC ONE (12:00)
[2018-07-20 14:00] VITALS: BP 105/57; PULSE 66; RESP 18
--- NOTE | 2018-07-20 15:31 | PN ---
Date/Time of Note Date/Time of Note DATE: 07/20/18 TIME: 15:31 Assessment/Plan Lines/Catheters IV Catheter Type (from [facility]): Peripheral IV Vázquez in Place (from [facility]): No Exam/Review of Systems Vital Signs Vitals Vital Signs Date Temp Pulse Resp B/P (MAP) Pulse Ox O2 O2 Flow FiO2 Time Delivery Rate 07/20/18 97.3 66 18 105/57 100 Room Air 14:00 (73) 07/18/18 8.0 11:14 Intake and Output 07/19/18 07/19/18 07/20/18 1515:00 23:00 07:00 IntakeIntake Total 670 ml 1510 ml 1840 ml OutputOutput Total 1200 ml 600 ml BalanceBalance 670 ml 310 ml 1240 ml Results Result Diagram: 07/18/18 0521 07/20/18 0559 LAKESHA CHILDERS MD Jul 20, 2018 15:31
--- NOTE | 2018-07-20 16:21 | CONS ---
Assessment/Plan Assessment/Plan Hospital Course (Demo Recall) Patient is alert feels good no fevers overnight. Intraoperative culture grew MRSA. He is awaiting for PICC line placement. Antimicrobials: Vancomycin Physical examination: Well-developed young man who is alert in no distress. Head atraumatic normocephalic neck is supple chest rise symmetrical, breath sounds clear. Heart: S1-S2. Abdomen soft bowel sounds present. Extremities with right lower extremity dressing intact Assessment: 23-year-old man status post right ankle hardware removal with cultures growing MRSA. Patient to be discharged home on IV vancomycin for 4 weeks, follow with Ortho, pending PICC line placement and discharge arrangements Consultation Date/Type/Reason Admit Date/Time Jul 17, 2018 at 23:39 Initial Consult Date 07/17/18 Type of Consult id Date/Time of Note DATE: 07/20/18 TIME: 16:21 Exam/Review of Systems Exam Vitals Vital Signs Date Temp Pulse Resp B/P (MAP) Pulse Ox O2 O2 Flow FiO2 Time Delivery Rate 07/20/18 97.3 66 18 105/57 100 Room Air 14:00 (73) 07/18/18 8.0 11:14 Intake and Output 07/19/18 07/19/18 07/20/18 1515:00 23:00 07:00 IntakeIntake Total 670 ml 1510 ml 1840 ml OutputOutput Total 1200 ml 600 ml BalanceBalance 670 ml 310 ml 1240 ml Results Result Diagram: 07/18/18 0521 07/20/18 0559 Results 24hrs Laboratory Tests Test 07/20/18 05:59 07/20/18 15:33 Blood Urea Nitrogen 13 Creatinine 0.83 Vancomycin Level Trough 5.7 L Medications Medication Current Medications IV Flush (NS 3 ml) 3 ml PER PROTOCOL IV ; Start 07/18/18 at 00:00 Acetaminophen (Tylenol Tab) 650 mg Q6H PRN PO .PAIN 1-3 OR TEMP; Start 07/18/18 at 00:00 Docusate Sodium (Colace) 100 mg Q12H PRN PO .CONSTIPATION; Start 07/18/18 at 0 0:00 Bisacodyl (Dulcolax) 5 mg DAILY PRN PO .CONSTIPATION; Start 07/18/18 at 00:00 Oxycodone/ Acetaminophen (Percocet (5/ 325)) 2 tab Q4H PRN PO PAIN Last administered on 07/20/18 16:07; Admin Dose 2 TAB; Start 07/18/18 at 12:00 Morphine Sulfate (morphine) 5 mg Q4H PRN IV PAIN LEVEL 7-10 Last administered on 07/20/18 12:55; Admin Dose 5 MG; Start 07/18/18 at 12:00 Ondansetron HCl (Zofran Inj) 4 mg Q4H PRN IV NAUSEA AND/OR VOMITING Last administered on 07/18/18 18:02; Admin Dose 4 MG; Start 07/18/18 at 12:00 Diphenhydramine HCl (Benadryl) 25 mg Q4H PRN PO ITCHING; Start 07/18/18 at 12:0 0 Enoxaparin Sodium (Lovenox) 40 mg DAILY SC Last administered on 07/20/18 08:04; Admin Dose 40 MG; Start 07/19/18 at 09:00 Vancomycin HCl (Vanco Iv Per Pharmacy) VANCOMYCIN PER PHARMACY PER PROTOCOL XX ; Start 07/19/18 at 12:00 Vancomycin HCl 250 ml @ 125 mls/hr Q12H IVPB Last administered on 07/20/18 05:33; Admin Dose 125 MLS/HR; Start 07/19/18 at 17:00 YEISON PYLE NP Jul 20, 2018 16:21
[2018-07-20 20:10] VITALS: BP 117/57; PULSE 70; RESP 18
[2018-07-21] MEDS: VANCOMYCIN 1 GM 250 ML IVPB SCH ×3 (01:07→16:31)
[2018-07-21 02:16] VITALS: BP 117/56; PULSE 65; RESP 18
[2018-07-21 07:51] VITALS: BP 109/52; PULSE 60; RESP 18
[2018-07-21] MEDS: morphine 10 MG INJ IV PRN ×4 (08:07→21:02)
[2018-07-21] MEDS: ENOXAPARIN 40 MG/0.4 ML SYG SC SCH (08:07)
--- NOTE | 2018-07-21 09:57 | PN ---
Date/Time of Note Date/Time of Note DATE: 07/21/18 TIME: 09:57 Assessment/Plan Lines/Catheters IV Catheter Type (from [facility]): Peripheral IV Vázquez in Place (from [facility]): No Exam/Review of Systems Vital Signs Vitals Vital Signs Date Temp Pulse Resp B/P (MAP) Pulse Ox O2 O2 Flow FiO2 Time Delivery Rate 07/21/18 97.2 60 18 109/52 95 Room Air 07:51 (71) 07/18/18 8.0 11:14 Intake and Output 07/20/18 07/20/18 07/21/18 1515:00 23:00 07:00 IntakeIntake Total 875 ml 2450 ml 1250 ml OutputOutput Total 1125 ml 1700 ml 325 ml BalanceBalance -250 ml 750 ml 925 ml Results Result Diagram: 07/18/18 0521 07/20/18 0559 LAKESHA CHILDERS MD Jul 21, 2018 09:57
[2018-07-21] MEDS: DOCUSATE SODIUM 100 MG CAP PO PRN (12:18)
--- NOTE | 2018-07-21 13:34 | PN ---
Date/Time of Note Date/Time of Note DATE: 07/21/18 TIME: 13:32 Assessment/Plan VTE Prophylaxis Risk score (from Ns)>0 risk: 6 SCD applied (from Nsg): Yes Pharmacological prophylaxis: LMWH Lines/Catheters IV Catheter Type (from Nrsg): Peripheral IV Urinary Cath still in place: No Assessment/Plan Hospital Course This is a 22M with a history of right ankle fx s/p ankle surgery who presents from his orthopedics office for preop eval for sx. Patient has been dealing with pain x 1 month to the right ankle. He has noticed discharge and blood and foul order for the last 1 month. He broke his ankle approximately 3 years ago in a soccer accident and had surgery then. Patient got right ankle hardware removal and right ankle irrigation and debridement of bone, muscle, soft tissue and skin on 07/18/2018 without complication. Wound caulture positive with MRSA, Patient will be discharged with iv vancomycin and follow up with ortho in one week. NWB on right right lower extremity. Assessment/Plan 1. Right ankle infection, MRSA, s/p Right ankle hardware removal, and I&D on 07/18/2018, on vancomycin 2. DVT prophylaxis: lovenox 3. Awaiting for set up of outpatient home health(insurance issue) Result Diagram: 07/18/18 0521 07/20/18 0559 Results 24hrs Laboratory Tests Test 07/20/18 15:33 Vancomycin Level Trough 5.7 L Subjective 24 Hr Interval Summary Free Text/Dictation afebrile Exam/Review of Systems Exam Vitals Vital Signs Date Temp Pulse Resp B/P (MAP) Pulse Ox O2 O2 Flow FiO2 Time Delivery Rate 07/21/18 97.2 60 18 109/52 95 Room Air 07:51 (71) 07/18/18 8.0 11:14 Intake and Output 07/20/18 07/20/18 07/21/18 1515:00 23:00 07:00 IntakeIntake Total 875 ml 2450 ml 1250 ml OutputOutput Total 1125 ml 1700 ml 325 ml BalanceBalance -250 ml 750 ml 925 ml Constitutional: alert, oriented, well developed Psych: no complaints, nl mood/affect Head: normocephalic, atraumatic Eyes: nl conjunctiva, EOMI, nl lids, PERRL ENMT: nl external ears & nose, nl lips & teeth, nl nasal mucosa & septum Neck: supple, non-tender Respiratory: clear to auscultation, normal air movement; No congested cough, No crackles/rales, No diminished breath sounds, No intercostal retraction, No labored breathing, No respirations, No tactile fremitus, No wheezing, No other Cardiovascular: regular rate and rhythm, nl pulses; No bruits, No diastolic murmur, No edema, No gallop, No irregular rhythm, No jugular venous distention (JVD), No murmurs/extra sounds, No rub, No systolic murmur, No S3, No S4, No other Gastrointestinal: soft, nl liver, spleen, non-tender; No ascites, No bowel sounds, No distended, No firm, No hepatomegaly, No mass, No rebound or guarding, No splenomegaly, No surgical scars, No tender, No other Extremities: other (right ankle pain) Neurological: BRAZER INDUCTION II-XII intact, nl mental status, nl speech, nl strength Results Results 24hrs Laboratory Tests Test 07/20/18 15:33 Vancomycin Level Trough 5.7 L Medications Medication Current Medications IV Flush (NS 3 ml) 3 ml PER PROTOCOL IV ; Start 07/18/18 at 00:00 Acetaminophen (Tylenol Tab) 650 mg Q6H PRN PO .PAIN 1-3 OR TEMP; Start 07/18/18 at 00:00 Docusate Sodium (Colace) 100 mg Q12H PRN PO .CONSTIPATION Last administered on 07/21/18at 12:18; Admin Dose 100 MG; Start 07/18/18 at 00:00 Bisacodyl (Dulcolax) 5 mg DAILY PRN PO .CONSTIPATION; Start 07/18/18 at 00:00 Oxycodone/ Acetaminophen (Percocet (5/ 325)) 2 tab Q4H PRN PO PAIN Last administered on 07/20/18at 22:16; Admin Dose 2 TAB; Start 07/18/18 at 12:00 Morphine Sulfate (morphine) 5 mg Q4H PRN IV PAIN LEVEL 7-10 Last administered on 07/21/18at 12:18; Admin Dose 5 MG; Start 07/18/18 at 12:00 Ondansetron HCl (Zofran Inj) 4 mg Q4H PRN IV NAUSEA AND/OR VOMITING Last administered on 07/18/18at 18:02; Admin Dose 4 MG; Start 07/18/18 at 12:00 Diphenhydramine HCl (Benadryl) 25 mg Q4H PRN PO ITCHING; Start 07/18/18 at 12:00 Enoxaparin Sodium (Lovenox) 40 mg DAILY SC Last administered on 07/21/18at 08:07; Admin Dose 40 MG; Start 07/19/18 at 09:00 Vancomycin HCl (Vanco Iv Per Pharmacy) VANCOMYCIN PER PHARMACY PER PROTOCOL XX ; Start 07/19/18 at 12:00 Vancomycin HCl 250 ml @ 125 mls/hr Q8H IVPB Last administered on 07/21/18at 08:06; Admin Dose 125 MLS/HR; Start 07/21/18 at 01:00 Miscellaneous Information (*Rx Drug Level Order Reminder*) VANCO TR LEVEL PRIOR... 1600 ONCE XX ; Start 07/21/18 at 16:00; Stop 07/21/18 at 16:01 FADUMO DOZIER MD Jul 21, 2018 13:34
[2018-07-21] MEDS: OXYCODONE/ACETAMINOPHEN (5/325) TAB PO PRN ×2 (13:57→19:54)
[2018-07-21 14:33] VITALS: BP 105/53; PULSE 70; RESP 18
--- NOTE | 2018-07-21 14:53 | CONS ---
Assessment/Plan Assessment/Plan Hospital Course (Demo Recall) No acute changes overnight, awake looks comfortable, no fevers Antimicrobials: Vancomycin Physical examination: Well-developed young man who is alert in no distress. Head atraumatic normocephalic neck is supple chest rise symmetrical, breath sounds clear. Heart: S1-S2. Abdomen soft bowel sounds present. Extremities with right lower extremity dressing intact Assessment: 23-year-old man status post right ankle hardware removal with cultures growing MRSA. Patient to be discharged home on IV vancomycin for 4 weeks, follow with Ortho, pending discharge arrangements Consultation Date/Type/Reason Admit Date/Time Jul 17, 2018 at 23:39 Initial Consult Date 07/17/18 Type of Consult id Date/Time of Note DATE: 07/21/18 TIME: 14:35 Exam/Review of Systems Exam Vitals Vital Signs Date Temp Pulse Resp B/P (MAP) Pulse Ox O2 O2 Flow FiO2 Time Delivery Rate 07/21/18 97.2 60 18 109/52 95 Room Air 07:51 (71) 07/18/18 8.0 11:14 Intake and Output 07/20/18 07/20/18 07/21/18 1515:00 23:00 07:00 IntakeIntake Total 875 ml 2450 ml 1250 ml OutputOutput Total 1125 ml 1700 ml 325 ml BalanceBalance -250 ml 750 ml 925 ml Results Result Diagram: 07/18/18 0521 07/20/18 0559 Results 24hrs Laboratory Tests Test 07/20/18 15:33 Vancomycin Level Trough 5.7 L Medications Medication Current Medications IV Flush (NS 3 ml) 3 ml PER PROTOCOL IV ; Start 07/18/18 at 00:00 Acetaminophen (Tylenol Tab) 650 mg Q6H PRN PO .PAIN 1-3 OR TEMP; Start 07/18/18 at 00:00 Docusate Sodium (Colace) 100 mg Q12H PRN PO .CONSTIPATION Last administered on 07/21/18at 12:18; Admin Dose 100 MG; Start 07/18/18 at 00:00 Bisacodyl (Dulcolax) 5 mg DAILY PRN PO .CONSTIPATION; Start 07/18/18 at 00:00 Oxycodone/ Acetaminophen (Percocet (5/ 325)) 2 tab Q4H PRN PO PAIN Last administered on 07/21/18at 13:57; Admin Dose 2 TAB; Start 07/18/18 at 12:00 Morphine Sulfate (morphine) 5 mg Q4H PRN IV PAIN LEVEL 7-10 Last administered on 07/21/18at 12:18; Admin Dose 5 MG; Start 07/18/18 at 12:00 Ondansetron HCl (Zofran Inj) 4 mg Q4H PRN IV NAUSEA AND/OR VOMITING Last administered on 07/18/18at 18:02; Admin Dose 4 MG; Start 07/18/18 at 12:00 Diphenhydramine HCl (Benadryl) 25 mg Q4H PRN PO ITCHING; Start 07/18/18 at 12:00 Enoxaparin Sodium (Lovenox) 40 mg DAILY SC Last administered on 07/21/18at 08:07; Admin Dose 40 MG; Start 07/19/18 at 09:00 Vancomycin HCl (Vanco Iv Per Pharmacy) VANCOMYCIN PER PHARMACY PER PROTOCOL XX ; Start 07/19/18 at 12:00 Vancomycin HCl 250 ml @ 125 mls/hr Q8H IVPB Last administered on 07/21/18at 08:06; Admin Dose 125 MLS/HR; Start 07/21/18 at 01:00 Miscellaneous Information (*Rx Drug Level Order Reminder*) 1 0800 ONCE XX ; Start 07/22/18 at 08:00; Stop 07/22/18 at 08:01 YEISON PYLE NP Jul 21, 2018 14:53
[2018-07-21 20:24] VITALS: BP 117/66; PULSE 97; RESP 20
[2018-07-22] MEDS: BISACODYL (EC) 5 MG TAB PO PRN
[2018-07-22] MEDS: VANCOMYCIN 1 GM 250 ML IVPB SCH ×2 (00:57→09:21)
[2018-07-22] MEDS: morphine 10 MG INJ IV PRN ×5 (01:06→21:37)
[2018-07-22 02:15] VITALS: BP 117/59; PULSE 63; RESP 18
[2018-07-22] MEDS: OXYCODONE/ACETAMINOPHEN (5/325) TAB PO PRN (03:55)
[2018-07-22 08:13] VITALS: BP 118/57; PULSE 75; RESP 18
[2018-07-22] MEDS: ONDANSETRON 4 MG INJ IV PRN (08:32)
[2018-07-22] MEDS: ENOXAPARIN 40 MG/0.4 ML SYG SC SCH (08:34)
--- NOTE | 2018-07-22 13:52 | PN ---
Date/Time of Note Date/Time of Note DATE: 07/22/18 TIME: 13:50 Assessment/Plan VTE Prophylaxis Risk score (from Ns)>0 risk: 6 SCD applied (from Nsg): Yes Pharmacological prophylaxis: LMWH Lines/Catheters IV Catheter Type (from Nrsg): Peripheral IV Urinary Cath still in place: No Assessment/Plan Hospital Course This is a 22M with a history of right ankle fx s/p ankle surgery who presents from his orthopedics office for preop eval for sx. Patient has been dealing with pain x 1 month to the right ankle. He has noticed discharge and blood and foul order for the last 1 month. He broke his ankle approximately 3 years ago in a soccer accident and had surgery then. Patient got right ankle hardware removal and right ankle irrigation and debridement of bone, muscle, soft tissue and skin on 07/18/2018 without complication. Wound caulture positive with MRSA, Patient will be discharged with iv vancomycin and follow up with ortho in one week. NWB on right right lower extremity. Assessment/Plan 1. Right ankle infection, MRSA, s/p Right ankle hardware removal, and I&D on 07/18/2018, on vancomycin 2. DVT prophylaxis: lovenox 3. Awaiting for set up of outpatient home health(insurance issue) 4. Change norco to ultram due to side effects(nausea) Result Diagram: 07/18/18 0521 07/20/18 0559 Results 24hrs Laboratory Tests Test 07/22/18 07:51 Vancomycin Level Trough 16.5 Subjective 24 Hr Interval Summary Free Text/Dictation nausea from norco afebrile Exam/Review of Systems Exam Vitals Vital Signs Date Temp Pulse Resp B/P (MAP) Pulse Ox O2 O2 Flow FiO2 Time Delivery Rate 07/22/18 97.9 75 18 118/57 98 Room Air 08:13 (77) 07/18/18 8.0 11:14 Intake and Output 07/21/18 07/21/18 07/22/18 1515:00 23:00 07:00 IntakeIntake Total 250 ml 1450 ml 1150 ml OutputOutput Total 1400 ml 3 ml BalanceBalance 250 ml 50 ml 1147 ml Constitutional: alert, oriented, well developed Psych: no complaints, nl mood/affect Head: normocephalic, atraumatic Eyes: nl conjunctiva, EOMI, nl lids, PERRL ENMT: nl external ears & nose, nl lips & teeth, nl nasal mucosa & septum Neck: supple, non-tender Respiratory: clear to auscultation, normal air movement; No congested cough, No crackles/rales, No diminished breath sounds, No intercostal retraction, No labored breathing, No respirations, No tactile fremitus, No wheezing, No other Cardiovascular: regular rate and rhythm, nl pulses; No bruits, No diastolic murmur, No edema, No gallop, No irregular rhythm, No jugular venous distention (JVD), No murmurs/extra sounds, No rub, No systolic murmur, No S3, No S4, No other Gastrointestinal: soft, nl liver, spleen, non-tender Extremities: other (right foot surgery) Neurological: HUMAN SERVICES CARE SPECIALIST II-XII intact, nl mental status, nl speech, nl strength Skin: nl turgor, rash or lesions Results Results 24hrs Laboratory Tests Test 07/22/18 07:51 Vancomycin Level Trough 16.5 Medications Medication Current Medications IV Flush (NS 3 ml) 3 ml PER PROTOCOL IV ; Start 07/18/18 at 00:00 Acetaminophen (Tylenol Tab) 650 mg Q6H PRN PO .PAIN 1-3 OR TEMP; Start 07/18/18 at 00:00 Docusate Sodium (Colace) 100 mg Q12H PRN PO .CONSTIPATION Last administered on 07/21/18at 12:18; Admin Dose 100 MG; Start 07/18/18 at 00:00 Bisacodyl (Dulcolax) 5 mg DAILY PRN PO .CONSTIPATION Last administered on 07/22/18at 00:00; Admin Dose 5 MG; Start 07/18/18 at 00:00 Oxycodone/ Acetaminophen (Percocet (5/ 325)) 2 tab Q4H PRN PO PAIN Last administered on 07/22/18at 03:55; Admin Dose 2 TAB; Start 07/18/18 at 12:00 Morphine Sulfate (morphine) 5 mg Q4H PRN IV PAIN LEVEL 7-10 Last administered on 07/22/18at 09:27; Admin Dose 5 MG; Start 07/18/18 at 12:00 Ondansetron HCl (Zofran Inj) 4 mg Q4H PRN IV NAUSEA AND/OR VOMITING Last administered on 07/22/18at 08:32; Admin Dose 4 MG; Start 07/18/18 at 12:00 Diphenhydramine HCl (Benadryl) 25 mg Q4H PRN PO ITCHING; Start 07/18/18 at 12:00 Enoxaparin Sodium (Lovenox) 40 mg DAILY SC Last administered on 07/22/18at 08:34; Admin Dose 40 MG; Start 07/19/18 at 09:00 Vancomycin HCl (Vanco Iv Per Pharmacy) VANCOMYCIN PER PHARMACY PER PROTOCOL XX ; Start 07/19/18 at 12:00 Vancomycin/Sodium Chloride 250 ml @ 125 mls/hr Q8H IVPB ; Start 07/22/18 at 17:00 Miscellaneous Information (*Rx Drug Level Order Reminder*) VANCO TR LEVEL PRIOR... 1600 ONCE XX ; Start 07/23/18 at 16:00; Stop 07/23/18 at 16:01 FADUMO DOZIER MD Jul 22, 2018 13:52
[2018-07-22 14:39] VITALS: BP 129/85; PULSE 68; RESP 18
--- NOTE | 2018-07-22 14:40 | CONS ---
Assessment/Plan Assessment/Plan Hospital Course (Demo Recall) Alert, feels good Antimicrobials: Vancomycin Physical examination: Well-developed young man who is alert in no distress. Head atraumatic normocephalic neck is supple chest rise symmetrical, breath sounds clear. Heart: S1-S2. Abdomen soft bowel sounds present. Extremities with right lower extremity dressing intact Assessment: 23-year-old man status post right ankle hardware removal with cultures growing MRSA. Patient to be discharged home on IV vancomycin for 4 weeks, follow with O r[facility]o, pending discharge arrangements ?PICC Consultation Date/Type/Reason Admit Date/Time Jul 17, 2018 at 23:39 Initial Consult Date 07/17/18 Type of Consult id Date/Time of Note DATE: 07/22/18 TIME: 14:40 Exam/Review of Systems Exam Vitals Vital Signs Date Temp Pulse Resp B/P (MAP) Pulse Ox O2 O2 Flow FiO2 Time Delivery Rate 07/22/18 97.9 75 18 118/57 98 Room Air 08:13 (77) 07/18/18 8.0 11:14 Intake and Output 07/21/18 07/21/18 07/22/18 1515:00 23:00 07:00 IntakeIntake Total 250 ml 1450 ml 1150 ml OutputOutput Total 1400 ml 3 ml BalanceBalance 250 ml 50 ml 1147 ml Results Result Diagram: 07/18/18 0521 07/20/18 0559 Results 24hrs Laboratory Tests Test 07/22/18 07:51 Vancomycin Level Trough 16.5 Medications Medication Current Medications IV Flush (NS 3 ml) 3 ml PER PROTOCOL IV ; Start 07/18/18 at 00:00 Acetaminophen (Tylenol Tab) 650 mg Q6H PRN PO .PAIN 1-3 OR TEMP; Start 07/18/18 at 00:00 Docusate Sodium (Colace) 100 mg Q12H PRN PO .CONSTIPATION Last administered on 07/21/18at 12:18; Admin Dose 100 MG; Start 07/18/18 at 00:00 Bisacodyl (Dulcolax) 5 mg DAILY PRN PO .CONSTIPATION Last administered on 07/22/18at 00:00; Admin Dose 5 MG; Start 07/18/18 at 00:00 Morphine Sulfate (morphine) 5 mg Q4H PRN IV PAIN LEVEL 7-10 Last administered on 07/22/18at 09:27; Admin Dose 5 MG; Start 07/18/18 at 12:00 Ondansetron HCl (Zofran Inj) 4 mg Q4H PRN IV NAUSEA AND/OR VOMITING Last administered on 07/22/18at 08:32; Admin Dose 4 MG; Start 07/18/18 at 12:00 Diphenhydramine HCl (Benadryl) 25 mg Q4H PRN PO ITCHING; Start 07/18/18 at 12:00 Enoxaparin Sodium (Lovenox) 40 mg DAILY SC Last administered on 07/22/18at 08:34; Admin Dose 40 MG; Start 07/19/18 at 09:00 Vancomycin HCl (Vanco Iv Per Pharmacy) VANCOMYCIN PER PHARMACY PER PROTOCOL XX ; Start 07/19/18 at 12:00 Vancomycin/Sodium Chloride 250 ml @ 125 mls/hr Q8H IVPB ; Start 07/22/18 at 17:00 Miscellaneous Information (*Rx Drug Level Order Reminder*) VANCO TR LEVEL PRIOR... 1600 ONCE XX ; Start 07/23/18 at 16:00; Stop 07/23/18 at 16:01 Tramadol HCl (Ultram) 50 mg Q6H PRN PO MODERATE PAIN LEVEL 4-6; Start 07/22/18 at 14:00 YEISON PYLE NP Jul 22, 2018 14:40
[2018-07-22] MEDS: traMADol 50 MG TAB PO PRN ×2 (17:38→23:01)
[2018-07-22] MEDS: VANCOMYCIN 750 MG (PMX) 250 ML IVPB SCH (17:38)
[2018-07-22 20:05] VITALS: BP 131/66; PULSE 78; RESP 20
[2018-07-23] MEDS: VANCOMYCIN 750 MG (PMX) 250 ML IVPB SCH ×3 (00:31→17:40)
[2018-07-23 03:00] VITALS: BP 102/56; RESP 20
[2018-07-23 07:54] VITALS: BP 102/50; PULSE 80; RESP 16
[2018-07-23] MEDS: ENOXAPARIN 40 MG/0.4 ML SYG SC SCH (08:17)
[2018-07-23] MEDS: morphine 10 MG INJ IV PRN ×3 (08:17→21:31)
[2018-07-23 14:30] VITALS: BP 118/56; PULSE 70; RESP 16
--- NOTE | 2018-07-23 15:42 | CONS ---
Assessment/Plan Assessment/Plan Hospital Course (Demo Recall) ID PROGRESS NOTE CURRENT ABX=Day # => Vanco IV 24H INTERVAL SUMMARY * POD # 5 ==> s/p Jul 18, 2018 Right ankle hardware removal + Right ankle irrigation and debridement of bone, muscle, soft tissue and skin * DiagnosiS: Right ankle painful hardware, Right ankle lateral sided abscess and drainage * A/A/O, denies new issues, no c/o watching TV with his family at bedside, no fevers, MICRO * WOUND CULTURE Preliminary Organism 1 METHICILLIN RESISTANT S.AUREUS QUANTITY 1+ . MULTI DRUG RESISTANT ORGANISM MRSA M.I.C. RX --------- --- CEFAZOLIN R CIPROFLOXACIN >=8 R CLINDAMYCIN <=0.25 S DOXYCYCLINE I ERYTHROMYCIN >=8 R LEVOFLOXACIN >=8 R OXACILLIN >=4 R PENICILLIN-G >=0.5 R RIFAMPIN <=0.5 S VANCOMYCIN 1 S TRIMETHOPRIM/SULFAMETHOXAZOLE >=320 R PHYSICAL EXAMINATION: GENERAL:VSS, NAD HEENT: Unremarkable NECK: Supple, trachea midline. CHEST: Rise symmetrical, without dyspnea on observation HEART: Pulse RRR ABDOMEN: Soft, ND EXTREMITIES: Warm, moves all extremities ID ASSESSMENT 23 yo M admit with: 1. Right ankle infection, MRSA, s/p Right ankle hardware removal, and I&D on 07/18/2018, on vancomycin * Hx of R-ankle FX - hx of ORIF 2. (+)FH Diabetes in 2 1st degree relatives (Mother/Father) 3. HFpEF: Stage II diastolic dysfunction)=> asymptomatic 4. Multiple Tattoos INVASIVES: ABX ALLERGY: KNDA CURRENT ABX: => Vanco IV ID RECOMMENDATIONS 1.Patient to be discharged home on IV vancomycin for 4 weeks, follow with Ortho, pending discharge arrangements ?PICC * Would follow IV ABX with Bactrim 1 TAB PO BID x14 days to complete 6 weeks . Consultation Date/Type/Reason Admit Date/Time Jul 17, 2018 at 23:39 Initial Consult Date 07/17/18 Date/Time of Note DATE: 07/23/18 TIME: 15:41 Exam/Review of Systems Exam Vitals Vital Signs Date Temp Pulse Resp B/P (MAP) Pulse Ox O2 O2 Flow FiO2 Time Delivery Rate 07/23/18 99.0 70 16 118/56 96 14:30 (76) 07/23/18 Room Air 03:00 Intake and Output 07/22/18 07/22/18 07/23/18 1414:59 22:59 06:59 IntakeIntake Total 1250 ml 1050 ml 850 ml OutputOutput Total 1400 ml 750 ml 600 ml BalanceBalance -150 ml 300 ml 250 ml Results Result Diagram: 07/20/18 0559 Medications Medication Current Medications IV Flush (NS 3 ml) 3 ml PER PROTOCOL IV ; Start 07/18/18 at 00:00 Acetaminophen (Tylenol Tab) 650 mg Q6H PRN PO .PAIN 1-3 OR TEMP; Start 07/18/18 at 00:00 Docusate Sodium (Colace) 100 mg Q12H PRN PO .CONSTIPATION Last administered on 07/21/18at 12:18; Admin Dose 100 MG; Start 07/18/18 at 00:00 Bisacodyl (Dulcolax) 5 mg DAILY PRN PO .CONSTIPATION Last administered on 07/22/18at 00:00; Admin Dose 5 MG; Start 07/18/18 at 00:00 Morphine Sulfate (morphine) 5 mg Q4H PRN IV PAIN LEVEL 7-10 Last administered on 07/23/18at 08:17; Admin Dose 5 MG; Start 07/18/18 at 12:00 Ondansetron HCl (Zofran Inj) 4 mg Q4H PRN IV NAUSEA AND/OR VOMITING Last administered on 07/22/18at 08:32; Admin Dose 4 MG; Start 07/18/18 at 12:00 Diphenhydramine HCl (Benadryl) 25 mg Q4H PRN PO ITCHING; Start 07/18/18 at 12:00 Enoxaparin Sodium (Lovenox) 40 mg DAILY SC Last administered on 07/23/18at 08:17; Admin Dose 40 MG; Start 07/19/18 at 09:00 Vancomycin HCl (Vanco Iv Per Pharmacy) VANCOMYCIN PER PHARMACY PER PROTOCOL XX ; Start 07/19/18 at 12:00 Vancomycin/Sodium Chloride 250 ml @ 125 mls/hr Q8H IVPB Last administered on 07/23/18at 08:53; Admin Dose 125 MLS/HR; Start 07/22/18 at 17:00 Miscellaneous Information (*Rx Drug Level Order Reminder*) VANCO TR LEVEL PRIOR... 1600 ONCE XX ; Start 07/23/18 at 16:00; Stop 07/23/18 at 16:01 Tramadol HCl (Ultram) 50 mg Q6H PRN PO MODERATE PAIN LEVEL 4-6 Last administered on 07/22/18at 23:01; Admin Dose 50 MG; Start 07/22/18 at 14:00 HANANE PINZON NP Jul 23, 2018 15:42
--- NOTE | 2018-07-23 16:35 | PN ---
Date/Time of Note Date/Time of Note DATE: 07/23/18 TIME: 16:33 Assessment/Plan VTE Prophylaxis Risk score (from Ns)>0 risk: 4 SCD applied (from Ns): Yes Pharmacological prophylaxis: heparin Lines/Catheters IV Catheter Type (from Nrs): Saline Lock Urinary Cath still in place: No Assessment/Plan Problems: (1) Status post open reduction with internal fixation (ORIF) of fracture of ankle Onset Date: ~ 06/2015 Status: Chronic Comment: He has had some hardware removal which may be infected. This raises some significant questions and he will need IV antibiotic therapy. There is an issue with his insurance about how this can be paid for. Regardless he is going to need a PICC line so we will make arrangements for that to be placed in 2 days (2) MRSA (methicillin resistant staph aureus) culture positive Status: Acute Comment: On vancomycin therapy (3) Vitamin D deficiency Status: Chronic Comment: Replace (4) Grade II diastolic dysfunction Status: Chronic Comment: Interesting finding in a gentleman of this age. Careful blood pressure control Result Diagram: 07/20/18 0559 Subjective 24 Hr Interval Summary Free Text/Dictation Patient reports he is doing relatively well Constitutional: no complaints Respiratory: no complaints Cardiovascular: no complaints Gastrointestinal: no complaints Exam/Review of Systems Exam Vitals Vital Signs Date Temp Pulse Resp B/P (MAP) Pulse Ox O2 O2 Flow FiO2 Time Delivery Rate 07/23/18 99.0 70 16 118/56 96 14:30 (76) 07/23/18 Room Air 03:00 Intake and Output 07/22/18 07/22/18 07/23/18 1515:00 23:00 07:00 IntakeIntake Total 1250 ml 1050 ml 850 ml OutputOutput Total 1400 ml 750 ml 600 ml BalanceBalance -150 ml 300 ml 250 ml Constitutional: alert, oriented Neck: supple, non-tender Respiratory: clear to auscultation, normal air movement Cardiovascular: regular rate and rhythm, nl pulses Medications Medication Current Medications IV Flush (NS 3 ml) 3 ml PER PROTOCOL IV ; Start 07/18/18 at 00:00 Acetaminophen (Tylenol Tab) 650 mg Q6H PRN PO .PAIN 1-3 OR TEMP; Start 07/18/18 at 00:00 Docusate Sodium (Colace) 100 mg Q12H PRN PO .CONSTIPATION Last administered on 07/21/18 12:18; Admin Dose 100 MG; Start 07/18/18 at 00:00 Bisacodyl (Dulcolax) 5 mg DAILY PRN PO .CONSTIPATION Last administered on 07/22/18 00:00; Admin Dose 5 MG; Start 07/18/18 at 00:00 Morphine Sulfate (morphine) 5 mg Q4H PRN IV PAIN LEVEL 7-10 Last administered on 07/23/18 16:11; Admin Dose 5 MG; Start 07/18/18 at 12:00 Ondansetron HCl (Zofran Inj) 4 mg Q4H PRN IV NAUSEA AND/OR VOMITING Last administered on 07/22/18 08:32; Admin Dose 4 MG; Start 07/18/18 at 12:00 Diphenhydramine HCl (Benadryl) 25 mg Q4H PRN PO ITCHING; Start 07/18/18 at 12:00 Enoxaparin Sodium (Lovenox) 40 mg DAILY SC Last administered on 07/23/18 08:17; Admin Dose 40 MG; Start 07/19/18 at 09:00 Vancomycin HCl (Vanco Iv Per Pharmacy) VANCOMYCIN PER PHARMACY PER PROTOCOL XX ; Start 07/19/18 at 12:00 Vancomycin/Sodium Chloride 250 ml @ 125 mls/hr Q8H IVPB Last administered on 07/23/18 08:53; Admin Dose 125 MLS/HR; Start 07/22/18 at 17:00 Tramadol HCl (Ultram) 50 mg Q6H PRN PO MODERATE PAIN LEVEL 4-6 Last administered on 07/22/18 23:01; Admin Dose 50 MG; Start 07/22/18 at 14:00 GIOVANNA CRISTINA MD Jul 23, 2018 16:34
[2018-07-23] MEDS: CHOLECALCIFEROL 2,000 UNIT CAP PO SCH (17:39)
[2018-07-23] MEDS: traMADol 50 MG TAB PO PRN ×2 (17:48→23:40)
[2018-07-23 20:00] VITALS: BP 129/66; PULSE 68; RESP 18
[2018-07-24] MEDS: VANCOMYCIN 1 GM 250 ML IVPB SCH ×3 (01:56→16:34)
[2018-07-24] MEDS: morphine 10 MG INJ IV PRN ×5 (01:56→19:46)
[2018-07-24 02:00] VITALS: BP 128/72; PULSE 67; RESP 17
[2018-07-24 08:17] VITALS: BP 109/53; PULSE 57; RESP 16
--- NOTE | 2018-07-24 09:27 | PN ---
Date/Time of Note Date/Time of Note DATE: 07/24/18 TIME: 09:24 Assessment/Plan VTE Prophylaxis Risk score (from Ns)>0 risk: 6 SCD applied (from Ns): Yes Pharmacological prophylaxis: heparin Lines/Catheters IV Catheter Type (from Nrsg): Saline Lock Central line still needed: Yes Urinary Cath still in place: No Assessment/Plan Problems: (1) Status post open reduction with internal fixation (ORIF) of fracture of ankle Onset Date: ~ 06/2015 Status: Chronic Comment: Status post hardware removal. He is nonweightbearing and will try and get him 1 of the special scooters for discharge. (2) MRSA (methicillin resistant staph aureus) culture positive Status: Acute Comment: Infectious disease is kindly given us guidance for duration of antibiotic therapy. Orders have been amended to reflect those recommendations. He will need a PICC line which have ordered for tomorrow. (3) Vitamin D deficiency Status: Chronic Comment: Being replaced (4) Grade II diastolic dysfunction Status: Chronic Comment: Noted. Result Diagram: 07/20/18 0559 Results 24hrs Laboratory Tests Test 07/23/18 16:24 Vancomycin Level Trough 8.4 L Subjective 24 Hr Interval Summary Free Text/Dictation Patient reports some ankle pain. He remains nonambulatory nonweightbearing Respiratory: no complaints Cardiovascular: no complaints Gastrointestinal: no complaints Genitourinary: no complaints Exam/Review of Systems Exam Vitals Vital Signs Date Temp Pulse Resp B/P (MAP) Pulse Ox O2 O2 Flow FiO2 Time Delivery Rate 07/24/18 97.8 57 16 109/53 94 08:17 (71) 07/23/18 Room Air 03:00 Intake and Output 07/23/18 07/23/18 07/24/18 1515:00 23:00 07:00 IntakeIntake Total 250 ml 1290 ml 730 ml OutputOutput Total 500 ml 1200 ml 500 ml BalanceBalance -250 ml 90 ml 230 ml Constitutional: alert, oriented Respiratory: clear to auscultation, normal air movement Cardiovascular: regular rate and rhythm, nl pulses Gastrointestinal: soft, nl liver, spleen, non-tender Results Results 24hrs Laboratory Tests Test 07/23/18 16:24 Vancomycin Level Trough 8.4 L Medications Medication Current Medications IV Flush (NS 3 ml) 3 ml PER PROTOCOL IV ; Start 07/18/18 at 00:00 Acetaminophen (Tylenol Tab) 650 mg Q6H PRN PO .PAIN 1-3 OR TEMP; Start 07/18/18 at 00:00 Docusate Sodium (Colace) 100 mg Q12H PRN PO .CONSTIPATION Last administered on 07/21/18 12:18; Admin Dose 100 MG; Start 07/18/18 at 00:00 Bisacodyl (Dulcolax) 5 mg DAILY PRN PO .CONSTIPATION Last administered on 07/22/18 00:00; Admin Dose 5 MG; Start 07/18/18 at 00:00 Morphine Sulfate (morphine) 5 mg Q4H PRN IV PAIN LEVEL 7-10 Last administered on 07/24/18 01:56; Admin Dose 5 MG; Start 07/18/18 at 12:00 Ondansetron HCl (Zofran Inj) 4 mg Q4H PRN IV NAUSEA AND/OR VOMITING Last administered on 07/22/18 08:32; Admin Dose 4 MG; Start 07/18/18 at 12:00 Diphenhydramine HCl (Benadryl) 25 mg Q4H PRN PO ITCHING; Start 07/18/18 at 12:00 Enoxaparin Sodium (Lovenox) 40 mg DAILY SC Last administered on 07/23/18 08:17; Admin Dose 40 MG; Start 07/19/18 at 09:00 Vancomycin HCl (Vanco Iv Per Pharmacy) VANCOMYCIN PER PHARMACY PER PROTOCOL XX ; Start 07/19/18 at 12:00 Tramadol HCl (Ultram) 50 mg Q6H PRN PO MODERATE PAIN LEVEL 4-6 Last admi nistered on 07/23/18 23:40; Admin Dose 50 MG; Start 07/22/18 at 14:00 Cholecalciferol (Vitamin D) 2,000 unit DAILY PO Last administered on 07/23/18 17:39; Admin Dose 2,000 UNIT; Start 07/23/18 at 16:30 Vancomycin HCl 250 ml @ 125 mls/hr Q8H IVPB Last administered on 07/24/18 01:56; Admin Dose 125 MLS/HR; Start 07/24/18 at 01:00; Stop 08/21/18 at 00:59 Trimethoprim/ Sulfamethoxazole (Bactrim (Ds)) 1 tab BID PO ; Start 07/24/18 at 21:00; Stop 09/04/18 at 20:59; Status UNV Lidocaine (Xylocaine 1% (Mpf)) 5 ml ONCE ONCE SC ; Start 07/24/18 at 09:30; Stop 07/24/18 at 09:31; Status UNV GIOVANNA CRISTINA MD Jul 24, 2018 09:27
[2018-07-24] MEDS ORDERED: LIDOCAINE 1% (MPF) 5 ML VIAL SC ONE (09:30)
[2018-07-24] MEDS: CHOLECALCIFEROL 2,000 UNIT CAP PO SCH (09:57)
[2018-07-24] MEDS: ENOXAPARIN 40 MG/0.4 ML SYG SC SCH (09:57)
--- NOTE | 2018-07-24 14:20 | CONS ---
Assessment/Plan Assessment/Plan Hospital Course (Demo Recall) ID PROGRESS NOTE CURRENT ABX=Day # => Vanco IV POD # 6 ==> s/p Jul 18, 2018 Right ankle hardware removal + Right ankle irrigation and debridement of bone, muscle, soft tissue and skin 24H INTERVAL SUMMARY * NEW PICC LINE IN PLACE * ---- he appears to be coping well with this setback -- A/A/O, denies new issues, no c/o watching TV with his family at bedside, no fevers, MICRO * WOUND CULTURE Preliminary Organism 1 METHICILLIN RESISTANT S.AUREUS QUANTITY 1+ . MULTI DRUG RESISTANT ORGANISM MRSA M.I.C. RX --------- --- CEFAZOLIN R CIPROFLOXACIN >=8 R CLINDAMYCIN <=0.25 S DOXYCYCLINE I ERYTHROMYCIN >=8 R LEVOFLOXACIN >=8 R OXACILLIN >=4 R PENICILLIN-G >=0.5 R RIFAMPIN <=0.5 S VANCOMYCIN 1 S TRIMETHOPRIM/SULFAMETHOXAZOLE >=320 R PHYSICAL EXAMINATION: GENERAL:VSS, NAD HEENT: Unremarkable NECK: Supple, trachea midline. CHEST: Rise symmetrical, without dyspnea on observation HEART: Pulse RRR ABDOMEN: Soft, ND EXTREMITIES: Warm, moves all extremities ID ASSESSMENT 23 yo M admit with: 1. Right ankle infection, MRSA, s/p Right ankle hardware removal, and I&D on 07/18/2018, on vancomycin * Hx of R-ankle FX -- hx of ORIF 2. (+)FH Diabetes in 2 1st degree relatives (Mother/Father) 3. HFpEF: Stage II diastolic dysfunction)=> asymptomatic 4. Multiple Tattoos INVASIVES: ABX ALLERGY: KNDA CURRENT ABX: => Vanco IV ID RECOMMENDATIONS 1.Patient to be discharged home on IV vancomycin for 4 weeks, follow with Ortho, pending discharge arrangements ?PICC * Would follow IV ABX with Bactrim 1 TAB PO BID x14 days to complete 6 weeks . Consultation Date/Type/Reason Admit Date/Time Jul 17, 2018 at 23:39 Initial Consult Date 07/17/18 Date/Time of Note DATE: 07/24/18 TIME: 14:16 Exam/Review of Systems Exam Vitals Vital Signs Date Temp Pulse Resp B/P (MAP) Pulse Ox O2 O2 Flow FiO2 Time Delivery Rate 07/24/18 97.8 57 16 109/53 94 08:17 (71) 07/23/18 Room Air 03:00 Intake and Output 07/23/18 07/23/18 07/24/18 1515:00 23:00 07:00 IntakeIntake Total 250 ml 1290 ml 730 ml OutputOutput Total 500 ml 1200 ml 500 ml BalanceBalance -250 ml 90 ml 230 ml Results Result Diagram: 07/20/18 0559 Results 24hrs Laboratory Tests Test 07/23/18 16:24 Vancomycin Level Trough 8.4 L Medications Medication Current Medications IV Flush (NS 3 ml) 3 ml PER PROTOCOL IV ; Start 07/18/18 at 00:00 Acetaminophen (Tylenol Tab) 650 mg Q6H PRN PO .PAIN 1-3 OR TEMP; Start 07/18/18 at 00:00 Docusate Sodium (Colace) 100 mg Q12H PRN PO .CONSTIPATION Last administered on 07/21/18 12:18; Admin Dose 100 MG; Start 07/18/18 at 00:00 Bisacodyl (Dulcolax) 5 mg DAILY PRN PO .CONSTIPATION Last administered on 07/22/18at 00:00; Admin Dose 5 MG; Start 07/18/18 at 00:00 Morphine Sulfate (morphine) 5 mg Q4H PRN IV PAIN LEVEL 7-10 Last administered on 07/24/18 09:59; Admin Dose 5 MG; Start 07/18/18 at 12:00 Ondansetron HCl (Zofran Inj) 4 mg Q4H PRN IV NAUSEA AND/OR VOMITING Last administered on 07/22/18 08:32; Admin Dose 4 MG; Start 07/18/18 at 12:00 Diphenhydramine HCl (Benadryl) 25 mg Q4H PRN PO ITCHING; Start 07/18/18 at 12:00 Enoxaparin Sodium (Lovenox) 40 mg DAILY SC Last administered on 07/24/18 09:57; Admin Dose 40 MG; Start 07/19/18 at 09:00 Vancomycin HCl (Vanco Iv Per Pharmacy) VANCOMYCIN PER PHARMACY PER PROTOCOL XX ; Start 07/19/18 at 12:00 Tramadol HCl (Ultram) 50 mg Q6H PRN PO MODERATE PAIN LEVEL 4-6 Last administered on 07/23/18at 23:40; Admin Dose 50 MG; Start 07/22/18 at 14:00 Cholecalciferol (Vitamin D) 2,000 unit DAILY PO Last administered on 07/24/18at 09:57; Admin Dose 2,000 UNIT; Start 07/23/18 at 16:30 Vancomycin HCl 250 ml @ 125 mls/hr Q8H IVPB Last administered on 07/24/18at 09:58; Admin Dose 125 MLS/HR; Start 07/24/18 at 01:00; Stop 08/21/18 at 00:59 Trimethoprim/ Sulfamethoxazole (Bactrim (Ds)) 1 tab BID PO ; Start 07/24/18 at 21:00; Stop 09/04/18 at 20:59 IV Flush (NS 10 ml) 10 ml PRN PRN IV IV PROTOCOL; Start 07/24/18 at 14:30; Status HANANE KEITH NP Jul 24, 2018 14:20
[2018-07-24 14:30] VITALS: BP 119/59; PULSE 70; RESP 16
[2018-07-24] MEDS: traMADol 50 MG TAB PO PRN (16:36)
[2018-07-24 20:00] VITALS: BP 117/58; PULSE 71; RESP 17
[2018-07-24] MEDS: TRIMETHOPRIM/SULFAMETHOX (DS) TAB PO SCH (21:38)
[2018-07-25] MEDS: VANCOMYCIN 1 GM 250 ML IVPB SCH ×3 (00:08→19:38)
[2018-07-25] MEDS: morphine 10 MG INJ IV PRN ×4 (00:09→20:33)
[2018-07-25 02:00] VITALS: BP 123/71; PULSE 75; RESP 18
[2018-07-25 08:29] VITALS: BP 105/68; PULSE 66; RESP 19
[2018-07-25] MEDS: ENOXAPARIN 40 MG/0.4 ML SYG SC SCH (08:54)
[2018-07-25] MEDS: CHOLECALCIFEROL 2,000 UNIT CAP PO SCH ×2 (09:00→12:14)
[2018-07-25] MEDS: TRIMETHOPRIM/SULFAMETHOX (DS) TAB PO SCH ×2 (09:00→12:14)
[2018-07-25] MEDS ORDERED: TRAM50TA2 PO (12:58)
[2018-07-25] MEDS ORDERED: SULF-182 PO (12:58)
[2018-07-25] MEDS ORDERED: VANC1.5P10 IV (12:58)
[2018-07-25] MEDS ORDERED: CHOL200073 PO (12:58)
[2018-07-25] MEDS ORDERED: DOCU-144 PO (12:58)
--- NOTE | 2018-07-25 13:37 | CONS ---
Assessment/Plan Assessment/Plan Hospital Course (Demo Recall) no acute changes, no fevers Antimicrobials: Vancomycin Physical examination: Well-developed young man who is alert in no distress. Head atraumatic normocephalic neck is supple chest rise symmetrical, breath sounds clear. Heart: S1-S2. Abdomen soft bowel sounds present. Extremities with right lower extremity dressing intact Assessment: 23-year-old man status post right ankle hardware removal with cultures growing MRSA. Patient to be discharged home on IV vancomycin for 4 weeks, follow with Ortho, pending discharge arrangements Consultation Date/Type/Reason Admit Date/Time Jul 17, 2018 at 23:39 Initial Consult Date 07/17/18 Type of Consult id Date/Time of Note DATE: 07/25/18 TIME: 13:35 Exam/Review of Systems Exam Vitals Vital Signs Date Temp Pulse Resp B/P (MAP) Pulse Ox O2 O2 Flow FiO2 Time Delivery Rate 07/25/18 98.5 66 19 105/68 96 08:29 (80) 07/23/18 Room Air 03:00 Intake and Output 07/24/18 07/24/18 07/25/18 1414:59 22:59 06:59 IntakeIntake Total 730 ml 1770 ml 1210 ml OutputOutput Total 900 ml 900 ml 1200 ml BalanceBalance -170 ml 870 ml 10 ml Results Result Diagram: 07/25/18 0747 Results 24hrs Laboratory Tests Test 07/25/18 07:47 Blood Urea Nitrogen 13 Creatinine 0.79 Vancomycin Level Trough 12.2 Medications Medication Current Medications IV Flush (NS 3 ml) 3 ml PER PROTOCOL IV ; Start 07/18/18 at 00:00 Acetaminophen (Tylenol Tab) 650 mg Q6H PRN PO .PAIN 1-3 OR TEMP; Start 07/18/18 at 00:00 Docusate Sodium (Colace) 100 mg Q12H PRN PO .CONSTIPATION Last administered on 07/21/18at 12:18; Admin Dose 100 MG; Start 07/18/18 at 00:00 Bisacodyl (Dulcolax) 5 mg DAILY PRN PO .CONSTIPATION Last administered on 07/22/18at 00:00; Admin Dose 5 MG; Start 07/18/18 at 00:00 Morphine Sulfate (morphine) 5 mg Q4H PRN IV PAIN LEVEL 7-10 Last administered on 07/25/18at 08:44; Admin Dose 5 MG; Start 07/18/18 at 12:00 Ondansetron HCl (Zofran Inj) 4 mg Q4H PRN IV NAUSEA AND/OR VOMITING Last administered on 07/22/18 08:32; Admin Dose 4 MG; Start 07/18/18 at 12:00 Diphenhydramine HCl (Benadryl) 25 mg Q4H PRN PO ITCHING; Start 07/18/18 at 12:00 Enoxaparin Sodium (Lovenox) 40 mg DAILY SC Last administered on 07/25/18 08:54; Admin Dose 40 MG; Start 07/19/18 at 09:00 Vancomycin HCl (Vanco Iv Per Pharmacy) VANCOMYCIN PER PHARMACY PER PROTOCOL XX ; Start 07/19/18 at 12:00; Stop 08/21/18 at 00:59 Tramadol HCl (Ultram) 50 mg Q6H PRN PO MODERATE PAIN LEVEL 4-6 Last administered on 07/24/18at 16:36; Admin Dose 50 MG; Start 07/22/18 at 14:00 Cholecalciferol (Vitamin D) 2,000 unit DAILY PO Last administered on 07/25/18at 12:14; Admin Dose 2,000 UNIT; Start 07/23/18 at 16:30 Vancomycin HCl 250 ml @ 125 mls/hr Q8H IVPB Last administered on 07/25/18 09:00; Admin Dose 125 MLS/HR; Start 07/24/18 at 01:00; Stop 08/21/18 at 00:59 IV Flush (NS 10 ml) 10 ml PRN PRN IV IV PROTOCOL; Start 07/24/18 at 14:30 YEISON PYLE NP Jul 25, 2018 13:37
[2018-07-25 15:03] VITALS: BP 115/68; PULSE 66; RESP 19
--- NOTE | 2018-07-25 15:24 | DS ---
DATE OF ADMISSION: 07/17/2018 DATE OF DISCHARGE: 07/25/2018 FINAL DIAGNOSES: A 23-year-old male who presents with several weeks of right ankle drainage and surr ounding erythema. After being status post right ankle ORIF in [place] several years prior. He a lso had worsening pain on that right ankle. He was admitted and managed for infected septic joints a nd infected hardware and he underwent hardware removal 07/18/2018. He was also found to have right a nkle lateral-sided abscess with drainage. Cultures grew out MRSA and the patient at this time is jillian ng discharged home on IV antibiotics. The patient had no other significant comorbidities, but for fu ll details, please review the patient's chart. Screening labs did come back positive for vitamin D d eficiency. CONSULTS ON THE CASE: 1. Infectious disease, Dr. Pavan Weiss. 2. Orthopedic surgery, Dr. Newton Archer. 3. Physical therapy and case management. DISPOSITION: Home with home IV antibiotics for 4 weeks and then completion of therapy with oral Bact rim for the next 2 weeks. Activities as tolerated. DIET: Recommended diet is regular. Recommended follow up with orthopedic surgical team in the next week or as per the instructions. DISCHARGE MEDICATIONS: 1. Vitamin D supplementation 2000 units daily. 2. Colace 100 b.i.d. FOLLOWUP: The patient is to have 4 weeks total of IV vancomycin and transitioned to oral Bactrim for 2 weeks. Tramadol 50 q.6h. p.r.n. for pain. Time spent on discharge coordination has been more than half hour. Dictated By: JO ANN JOHN MD, BA/NTS Conf#: [id number] DID#: [id number] CC: DANDY HUA MD;*EndCC*
[2018-07-25 20:32] VITALS: BP 114/67; PULSE 62; RESP 20
[2018-07-25] MEDS: traMADol 50 MG TAB PO PRN (22:50)
[2018-07-26] MEDS: morphine 10 MG INJ IV PRN ×3 (00:42→14:51)
[2018-07-26] MEDS: VANCOMYCIN 1 GM 250 ML IVPB SCH ×3 (02:05→17:02)
[2018-07-26 02:06] VITALS: BP 123/58; PULSE 75; RESP 18
[2018-07-26 08:24] VITALS: BP 93/53; PULSE 85; RESP 18
[2018-07-26] MEDS: CHOLECALCIFEROL 2,000 UNIT CAP PO SCH (09:21)
[2018-07-26] MEDS: ENOXAPARIN 40 MG/0.4 ML SYG SC SCH (09:23)
[2018-07-26] MEDS: DOCUSATE SODIUM 100 MG CAP PO PRN (10:28)
[2018-07-26] MEDS: BISACODYL (EC) 5 MG TAB PO PRN (10:28)
--- NOTE | 2018-07-26 11:51 | CONS ---
Assessment/Plan Assessment/Plan Hospital Course (Demo Recall) All noted, no acute changes Antimicrobials: Vancomycin Vanco trough yesterday 12.2 Physical examination: Well-developed young man who is alert in no distress. Head atraumatic normocephalic neck is supple chest rise symmetrical, breath sounds clear. Heart: S1-S2. Abdomen soft bowel sounds present. Extremities with right lower extremity dressing intact Assessment: 23-year-old man status post right ankle hardware removal with cultures growing MRSA. Pending discharged home on IV vancomycin to complete 4 weeks post surgery Consultation Date/Type/Reason Admit Date/Time Jul 17, 2018 at 23:39 Initial Consult Date 07/17/18 Type of Consult id Date/Time of Note DATE: 07/26/18 TIME: 11:49 Exam/Review of Systems Exam Vitals Vital Signs Date Temp Pulse Resp B/P (MAP) Pulse Ox O2 O2 Flow FiO2 Time Delivery Rate 07/26/18 97.5 85 18 93/53 (66) 97 Room Air 08:24 Intake and Output 07/25/18 07/25/18 07/26/18 1515:00 23:00 07:00 IntakeIntake Total 1230 ml 690 ml 250 ml OutputOutput Total 450 ml 200 ml 1100 ml BalanceBalance 780 ml 490 ml -850 ml Results Result Diagram: 07/25/18 0747 Medications Medication Current Medications IV Flush (NS 3 ml) 3 ml PER PROTOCOL IV ; Start 07/18/18 at 00:00 Acetaminophen (Tylenol Tab) 650 mg Q6H PRN PO .PAIN 1-3 OR TEMP; Start 07/18/18 at 00:00 Docusate Sodium (Colace) 100 mg Q12H PRN PO .CONSTIPATION Last administered on 07/26/18at 10:28; Admin Dose 100 MG; Start 07/18/18 at 00:00 Bisacodyl (Dulcolax) 5 mg DAILY PRN PO .CONSTIPATION Last administered on 07/26at 10:28; Admin Dose 5 MG; Start 07/18/18 at 00:00 Morphine Sulfate (morphine) 5 mg Q4H PRN IV PAIN LEVEL 7-10 Last administered on 07/26/18at 09:25; Admin Dose 5 MG; Start 07/18/18 at 12:00 Ondansetron HCl (Zofran Inj) 4 mg Q4H PRN IV NAUSEA AND/OR VOMITING Last administered on 07/22/18at 08:32; Admin Dose 4 MG; Start 07/18/18 at 12:00 Diphenhydramine HCl (Benadryl) 25 mg Q4H PRN PO ITCHING; Start 07/18/18 at 12:00 Enoxaparin Sodium (Lovenox) 40 mg DAILY SC Last administered on 07/26/18at 0 9:23; Admin Dose 40 MG; Start 07/19/18 at 09:00 Vancomycin HCl (Vanco Iv Per Pharmacy) VANCOMYCIN PER PHARMACY PER PROTOCOL XX ; Start 07/19/18 at 12:00; Stop 08/21/18 at 00:59 Tramadol HCl (Ultram) 50 mg Q6H PRN PO MODERATE PAIN LEVEL 4-6 Last administered on 07/25/18at 22:50; Admin Dose 50 MG; Start 07/22/18 at 14:00 Cholecalciferol (Vitamin D) 2,000 unit DAILY PO Last administered on 07/26/18at 09:21; Admin Dose 2,000 UNIT; Start 07/23/18 at 16:30 Vancomycin HCl 250 ml @ 125 mls/hr Q8H IVPB Last administered on 07/26/18 09:22; Admin Dose 125 MLS/HR; Start 07/24/18 at 01:00; Stop 08/21/18 at 00:59 IV Flush (NS 10 ml) 10 ml PRN PRN IV IV PROTOCOL; Start 07/24/18 at 14:30 YEISON PYLE NP Jul 26, 2018 11:51
[2018-07-26] MEDS ORDERED: LINE600T33 PO (15:06)
[2018-07-26 15:19] VITALS: BP 119/58; PULSE 75; RESP 19
--- NOTE | 2018-07-26 16:02 | DS ---
DATE OF ADMISSION: 07/17/2018 DATE OF DISCHARGE: ADDENDUM The patient's discharge was held yesterday due to scan of insurance. He is unable to have home IV an tibiotics, and so today we have arranged for oral antibiotics based on ID recommendations, and hopefu lly once that is approved, the patient can be discharged. The patient remains stable for discharge w ithout new complaints. FINAL DIAGNOSES: A 23-year-old male who presented with several weeks of right ankle drainage and guerita thema after having a right ankle open reduction and internal fixation because of fall several years p rior, was admitted and managed for the followin. An infected septic joint with infected hardware, status post hardware removal 07/18/2018. 2. Right ankle lateral side abscess, status post drainage, with cultures growing out methicillin-res istant Staphylococcus aureus. 3. Vitamin D deficiency. CONSULTS ON THE CASE: 1. Infectious disease, Dr. Pavan Weiss. 2. Orthopedic surgery, Dr. Newton Archer. 3. Physical therapy and case management. DISPOSITION: Home with oral antibiotics for 6 weeks per ID recommendations. DIET: Recommended diet is regular. Follow up orthopedic surgical team in the next 1 to 2 weeks or a s per their instructions. DISCHARGE MEDICATIONS: Please review the patient's chart for complete discharge medications. Time spent on coordination and working on getting approval of his medications and reviewing case with case management and consultants has been more than half an hour. Dictated By: JO ANN JOHN MD BA/NTS Conf#: [id number] DID#: [id number] CC: DANDY HUA MD;*EndCC*
[2018-07-26 21:43] VITALS: BP 125/65; PULSE 80; RESP 18
== END 2018-07-26 21:20 | disposition home or self-care (01) | DRG 908 ==
LOC: E/R 20:18 → PP2 23:39
PROVIDERS: ADMIT Family Medicine; ATTEND Family Medicine
PROC: 0QBB0ZZ Excision of Right Lower Femur, Open Approach (ICD-10-PCS; 2018-07-18)
PROC: 0QPB04Z Removal of Internal Fixation Device from Right Lower Femur, Open Approach (ICD-10-PCS; principal; 2018-07-18 11:00)
PROC: 02HV33Z Insertion of Infusion Device into Superior Vena Cava, Percutaneous Approach (ICD-10-PCS; 2018-07-24)
DX: T85.79XA Infection and inflammatory reaction due to other internal prosthetic devices, implants and grafts, initial encounter (principal); I50.32 Chronic diastolic (congestive) heart failure; M00.871 Arthritis due to other bacteria, right ankle and foot; L02.415 Cutaneous abscess of right lower limb; B95.62 Methicillin resistant Staphylococcus aureus infection as the cause of diseases classified elsewhere; T84.84XA Pain due to internal orthopedic prosthetic devices, implants and grafts, initial encounter; E55.9 Vitamin D deficiency, unspecified
CPT/HCPCS: 36569; 71045; 76937; 80053; 80061; 80202; 81003; 82306; 82565; 83036; 83735; 84443; 84520; 85025; 85049; 85610; 85651; 85670; 85730; 86140; 87070; 87075; 87102; 87116; 88300; 93005; 93306; 96374; 97161; J0690; J1100; J1170; J1650; J2250; J2270; J2405; J2710; J2795; J3010; J3370; J7030